=== PATIENT | female | born 1950 | race African-American/Black ===

== ENCOUNTER 2024-07-26 22:40 | Emergency (ER) | payer OTHER, MEDICAID ==
[~2024-07-26] VITALS: Ht 162.6 cm; Wt 81.1 kg
[2024-07-26] MEDS: SODIUM CHLORIDE 0.9% 500 ML IV ONE (23:30)
[2024-07-26 23:50] VITALS: PULSE 62; RESP 18; TEMP 97.9; O2SAT 95
[2024-07-26 23:51] LABS: Basophils # (auto) 0 10 ^3/uL (0-0.2); Basophils % (auto) 0.6 % (0.0-2.0); Eosinophils # (auto) 0.2 10 ^3/uL (0-0.8); Eosinophils % (auto) 2.7 % (0.0-7.0); Hematocrit 38.9 % (36.0-46.0); Hemoglobin 12.8 g/dL (12.2-16.2); Lymphocytes % (auto) 47.5 % (10.0-50.0); Mean Corpuscular Hemoglobin 27.5 pg (28.0-32.0); Mean Corpuscular Hgb Conc. 32.9 g/dL (32.0-36.0); Mean Corpuscular Volume 83.6 fL (80.0-100.0); Monocytes # (auto) 0.3 10 ^3/uL (0-1.3); Monocytes % (auto) 5.5 % (0.0-12.0); Neutrophils # (auto) 2.8 10 ^3/uL (1.6-8.6); Neutrophils % (auto) 43.7 % (37.0-80.0); Nucleated Red Blood Cells % 0.1 %; Platelet Count (auto) 341 10^3/uL (140-450); Red Blood Cells 4.65 10^6/uL (4.0-5.20); Red Cell Distribution Width 15.6 % (11.8-14.3); White Blood Cell 6.3 10^3/uL (4.4-10.8)
--- NOTE | 2024-07-26 23:52 | DVH ---
CT HEAD WITHOUT CONTRAST INDICATION: gen weak COMPARISON: None TECHNIQUE: CT of the head without intravenous contrast. RADIATION DOSE: CTDIvol: mGy, DLP: mGy*cm FINDINGS: There is no evidence of intracranial hemorrhage, acute infarct, extra-axial collection, mass effect, midline shift, herniation or hydrocephalus. There are small old infarcts in the left posterior tempo ral lobe and left basal ganglia/morales radiata, an old lacunar infarct in the right thalamus, and a v adriano small old infract in right cerebellum. Bcqr-cr-ieyjhnja ventricular enlargement related to cereb ral volume loss. Visualized paranasal sinuses and mastoid air cells are clear. Soft tissues and osseo us structures are unremarkable. IMPRESSION: No acute intracranial abnormality identified.
--- NOTE | 2024-07-26 23:58 | DVH ---
CHEST RADIOGRAPH Indication: gen weak Technique: Single frontal view of the chest was obtained Comparison: None Findings/ IMPRESSION: Limited evaluation due to overlying left upper extremity. 2 radiopaque opacities most likely artifact . No active cardiopulmonary disease.
[2024-07-27 00:09] LABS: Alanine Aminotransferase 11 U/L (7-40); Albumin 4.2 g/dL (3.2-4.8); Alkaline Phosphatase 68 U/L (46-116); Anion Gap 9 (5-15); Bilirubin, Total 0.3 mg/dL (0.2-1.0); Blood Urea Nitrogen 19 mg/dL (9-23); Calcium 10.1 mg/dL (8.7-10.4); Carbon Dioxide 23 mmol/L (20-31); Chloride 104 mmol/L (98-107); Creatine Kinase IFCC 161 U/L (34-145); Potassium 3.8 mmol/L (3.5-5.1); Sodium 136 mmol/L (136-145); Total Protein 6.9 g/dL (5.7-8.2)
[2024-07-27 00:17] LABS: Aspartate Aminotransferase 12 U/L (13-40); Glucose 190 mg/dL (74-106)
--- NOTE | 2024-07-27 00:21 | ED.PDOC ---
History of Present Illness HPI Comments 74-year-old female with a history of hypertension, diabetes and CVA brought in by EMS from home for evaluation of transient altered mental status. Patient's daughter states that she had just left the patient alone for a few minutes while getting ready for bed when she noticed a smell of feces. She assumed the patient had had a bowel movement and needed to be changed, so went to assist her. Daughter states she found the patient leaning against the bed with her eyes rolling back and some foam around her mouth. Pt subsequently vomited. Pt's daughter states she quickly gave the patient her evening dose of Lantus, assuming that her blood glucose might have been too high. She subsequently c hecked the patient's glucose, which was on 190. Patient states after she vomited she felt better. She denies losing consciousness, and states she recalls the entire incident. She states did not fall or sustain any injury. She denies any preceding pain, shortness a breath, vision changes or focal weakness. Daughter states the patient has been in her usual state of health up until this episode. Currently the patient denies any symptoms. Daughter states the patient appears to be at her normal baseline. 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 Moist mucous membranes.) Neck: Full Range of Motion, Normal Inspection Respiratory: Lungs Clear, No Accessory Muscle Use, No Respiratory Distress, Normal Breath Sounds Cardiovascular: No Edema, No JVD, Regular Rate/Rhythm Breast Exam: Deferred Gastrointestinal: Non Tender, Soft Genitalia: Deferred Pelvic: Deferred Rectal: Deferred Extremities: Normal inspection, Normal range of motion, Non-tender, No pedal edema Neurologic: Alert (Oriented x4), Normal Affect, Normal Mood, Other (Moves all extremities. No gross focal deficit.) Cerebellar Function: NOT DONE Reflexes: NOT DONE Skin: Dry, Pallor, Warm Lymphatic: NOT DONE Was a procedure done? Was a procedure done?: No Differential Dx Considerations may include: Vasovagal episode, TIA, CVA, other encephalopathy, enteritis, gastritis, UTI, sepsis, arrhythmia, MD, among others X-Ray, Labs, Meds, VS Vital Signs Date Time Temp Pulse Resp B/P (MAP) Pulse Ox O2 Delivery O2 Flow Rate FiO2 07/26/24 22:53 98.7 59 16 172/87 (115) 98 98.7 07/26/24 22:48 62 Lab Test 07/27/24 00:30 07/27/24 00:20 07/26/24 23:32 07/26/24 22:50 Range/Units Urine Color Light-yellow Yellow Urine Clarity Clear Clear Urine pH 5.0 5.0-9.0 Urine Specific [place] 1.017 1.001-1.035 Urine Protein Negative Negative Urine Ketones Negative Negative Urine Blood Negative Negative /uL Urine Nitrite Negative Negative Urine Bilirubin Negative Negative Urine Urobilinogen Normal Negative mg/dL Urine Leukocyte Esterase Negative Negative /uL Urine RBC 1 0 - 4 /hpf Urine Microscopic WBC 3 0-5 /HPF Urine Squamous Epithelial Cells Few <5 /hpf Urine Bacteria None seen None Seen /hpf Urine Mucus Few None Seen Urine Glucose Trace Normal mg/dL Troponin I High Sensitivity 3 L 3 L </=34 ng/L White Blood Count 6.3 4.4-10.8 10^3/uL Red Blood Count 4.65 4.0-5.20 10^6/uL Hemoglobin 12.8 12.2-16.2 g/dL Hematocrit 38.9 36.0-46.0 % Mean Corpuscular Volume 83.6 80.0-100.0 fL Mean Corpuscular Hemoglobin 27.5 L 28.0-32.0 pg Mean Corpuscular Hemoglobin Concent 32.9 32.0-36.0 g/dL Red Cell Distribution Width 15.6 H 11.8-14.3 % Platelet Count 341 140-450 10^3/uL Mean Platelet Volume 8.1 6.9-10.8 fL Neutrophils (%) (Auto) 43.7 37.0-80.0 % Lymphocytes (%) (Auto) 47.5 10.0-50.0 % Monocytes (%) (Auto) 5.5 0.0-12.0 % Eosinophils (%) (Auto) 2.7 0.0-7.0 % Basophils (%) (Auto) 0.6 0.0-2.0 % Neutrophils # (Auto) 2.8 1.6-8.6 10 ^3/uL Lymphocytes # (Auto) 3.0 0.4-5.4 10 ^3/uL Monocytes # (Auto) 0.3 0-1.3 10 ^3/uL Eosinophils # (Auto) 0.2 0-0.8 10 ^3/uL Basophils # (Auto) 0 0-0.2 10 ^3/uL Nucleated Red Blood Cells 0.1 % Sodium Level 136 136-145 mmol/L Potassium Level 3.8 3.5-5.1 mmol/L Chloride Level 104 98-107 mmol/L Carbon Dioxide Level 23 20-31 mmol/L Anion Gap 9 5-15 Blood Urea Nitrogen 19 9-23 mg/dL Creatinine 0.73 0.550-1.02 mg/dL Glomerular Filtration Rate Calc 87 >90 mL/min BUN/Creatinine Ratio 26.0 H 10.0-20.0 Serum Glucose 190 H 74-106 mg/dL Lactic Acid Level 1.6 0.4-2.0 mmol/L Calcium Level 10.1 8.7-10.4 mg/dL Total Bilirubin 0.3 0.2-1.0 mg/dL Aspartate Amino Transferase (AST) 12 L 13-40 U/L Alanine Aminotransferase (ALT) 11 7-40 U/L Alkaline Phosphatase 68 46-116 U/L Creatine Kinase 161 H 34-145 U/L B-Type Natriuretic Peptide 16.06 0-100 pg/mL Total Protein 6.9 5.7-8.2 g/dL Albumin 4.2 3.2-4.8 g/dL POC Glucose 190 H 70-106 mg/dl Current Medications Medications (Trade) Dose Ordered Sig/Wilfredo Route Start Time Stop Time Status Last Admin Sodium Chloride 500 ml @ 500 mls/hr Q1H ONCE IV 07/26/24 23:30 07/27/24 00:29 DC 07/26/24 23:30 PROCEDURE(s): HWOCT - HEAD WITHOUT CONTRAST REASON: gen dunn ORDER NUMBER(s): [id number], ACCESSION NUMBER(s): [id number] CT HEAD WITHOUT CONTRAST INDICATION: gen dunn COMPARISON: None TECHNIQUE: CT of the head without intravenous contrast. RADIATION DOSE: CTDIvol: mGy, DLP: mGy*cm FINDINGS: There is no evidence of intracranial hemorrhage, acute infarct, extra-axial collection, mass effect, midline shift, herniation or hydrocephalus. There are small old infarcts in the left posterior temporal lobe and left basal ganglia/morales radiata, an old lacunar infarct in the right thalamus, and a very small old infract in right cerebellum. Jbeu-lx-zrhlgkyf ventricular enlargement related to cerebral volume loss. Visualized paranasal sinuses and mastoid air cells are clear. Soft tissues and osseous structures are unremarkable. IMPRESSION: No acute intracranial abnormality identified. EDURE(s): CXRP - CHEST PORTABLE REASON: [email or web address] ORDER NUMBER(s): [id number], ACCESSION NUMBER(s): [id number] CHEST RADIOGRAPH Indication: shaun Technique: Single frontal view of the chest was obtained Comparison: None Findings/ IMPRESSION: Limited evaluation due to overlying left upper extremity. 2 radiopaque opacities most likely artifact. No active cardiopulmonary disease. X-Ray, Labs, Meds, VS Comment 74-year-old female with a history of hypertension, diabetes and CVA brought in by EMS after a transient episode of altered mental status, followed by vomiting. Patient now back to baseline according to daughter. Vitals remarkable for heart rate 59, BP 172/87 Exam unremarkable Rhythm strip independently interpreted by me: Sinus rhythm, rate 58, no ectopy. CT head unremarkable Chest x-ray unremarkable CBC unremarkable, CMP, BNP and troponin normal, total CK 161, lactic normal, UA remarkable Patient treated with the following in the ED: 500 cc 0.9 normal saline IV bolus On re-evaluation, patient was sleeping comfortably, easily arousable, and at normal neurologic baseline per daughter. Patient appears stable for discharge with close outpatient follow-up with her primary physician. Rx Zofran ODT. Time of 1ST Reevaluation: :34 Reevaluation 1ST: Improved Patient Education/Counseling: Diagnosis, Treatment, Need For Follow Up Family Education/Counseling: Diagnosis, Treatment, Need For Follow Up Departure 1 Departure Time of Disposition: : Impression: Primary Impression: Vasovagal episode Disposition: HOME / SELF CARE / HOMELESS Condition: Stable Additional Instructions: Your blood tests were unremarkable. Your urine test did not show an infection. Your head CT was unremarkable. Your chest x-ray was unremarkable. I have prescribed medication for nausea and vomiting. Follow-up with your primary doctor in 1-2 days. Return to ER for persistent or worsening symptoms. e-Prescriptions Ondansetron Odt 4MG Tab (ZOFRAN PO) 4 Mg Tb 4 MG PO TID PRN, #30 TAB prn n/v ODT TAB-DISSOLVE IN MOUTH, THEN SWALLOW Prov: DELONTE HART MD 07/27/24 Discharged With: Relative Critical Care Note Critical Care Time?: No Stability Stability form required: No Heart Score Heart Score: Heart Score Response (Comments) Value History N/A 0 EKG N/A 0 Age N/A 0 Risk Factors N/A 0 Troponin N/A 0 Total 0 DELONTE HART MD Jul 27, 2024 00:21
[2024-07-27 00:54] LABS: Urine Bacteria None Seen /hpf (None Seen)
[2024-07-27 01:15] LABS: Urine Blood Negative /uL (Negative); Urine Clarity Clear (Clear); Urine Color Light-Yellow (Yellow); Urine Mucus FEW (None Seen); Urine Protein, UAD Negative (Negative); Urine Specific Gravity 1.017 (1.001-1.035); Urine Squamous Epithelial Cell FEW /hpf (<5); Urine Urobilinogen Normal (Negative); Urine WBC 3 /HPF (0-5)
[2024-07-27] MEDS ORDERED: ZOFR4T PO (01:36)
[2024-07-27] MEDS: ONDANSETRON HCL 4 MG/2 ML VIAL ONE (02:24)
[2024-07-27 07:30] VITALS: PULSE 57; RESP 14; O2SAT 95
[2024-07-27 08:00] VITALS: BP 144/77; PULSE 57; RESP 14; O2SAT 95
--- NOTE | 2024-07-27 09:02 | ECG ---
[facility] Test Date: 2024-07-26 Test Time: 22:48:29 Pat Name: SLOANE ESPINAL Department: ED Room: Gender: F Product Technician: ER : [id number] Requested By: DELONTE GREER Order Number: [id number] Reading MD: Marcos Morris Measurements Intervals [place] Rate: 62 P: 85 [place]: 169 QRS: 55 QRSD: 87 T: 115 QT: 594 QTc: 604 Interpretive Statements Sinus rhythm Low voltage, precordial leads Nonspecific T abnrm, anterolateral leads Prolonged QT interval Electronically Signed On 07-29-2024 20:26:22 PDT by Marcos Morris Please click the below link to view image of tracing.
== END 2024-07-27 11:28 | disposition home or self-care (01) ==
LOC: EDBD 22:40 → ER 22:45
DX: R55 Syncope and collapse (principal); R19.4 Change in bowel habit; R11.10 Vomiting, unspecified; I10 Essential (primary) hypertension; E11.9 Type 2 diabetes mellitus without complications; R06.02 Shortness of breath; Z86.73 Personal history of transient ischemic attack (TIA), and cerebral infarction without residual deficits; Z98.890 Other specified postprocedural states
CPT/HCPCS: 36415; 70450; 71045; 80053; 81001; 82550; 82947; 83605; 83880; 84484; 85025; 87040; 93005; 99285; J7040; 82962; J2405

== ENCOUNTER 2025-02-07 19:33 | Inpatient (IN) | payer MEDICARE, MEDICAID ==
[~2025-02-07] VITALS: Ht 172.7 cm; Wt 73.4 kg
[~2025-02-07 19:33] MED LIST: ZOFR4T PO
[2025-02-07] MEDS: SODIUM CHLORIDE 0.9% 1,000 ML IV ONE (21:00)
--- NOTE | 2025-02-07 21:15 | DVH ---
EXAM: XY CHEST XRAY 1 VIEW HISTORY: AMS, eval for PNA TECHNIQUE: 1 view of the chest COMPARISON: XY CHEST PORTABLE on DOS: 07/26/24 FINDINGS/IMPRESSION: LUNGS: No pleural effusion, consolidation, or pneumothorax. MEDIASTINUM: Unremarkable. BONES: No acute osseous abnormality. OTHER: None.
[2025-02-07 21:17] VITALS: PULSE 76; RESP 14; O2SAT 95
[2025-02-07 21:17] LABS: Hematocrit 42.0 % (36.0-46.0); Hemoglobin 13.9 g/dL (12.2-16.2); Mean Corpuscular Hemoglobin 27.8 pg (28.0-32.0); Mean Corpuscular Volume 84.2 fL (80.0-100.0); Nucleated Red Blood Cells % 0.1 %
--- NOTE | 2025-02-07 21:21 | DVH ---
EXAM: CT HEAD WITHOUT CONTRAST INDICATION: AMS, h/o prior CVA TECHNIQUE: CT of the head without intravenous contrast. Radiation Dose Information: CT Dose: CTDI volume is 53.64 mGy. Dose-length product is 1076.15 mGy*cm The dose indicators for CT are the volume Computed Tomography (CT) Dose Index (CTDIvol) and the Dose Length Product (DLP), and are measured in units of mGy and mGy-cm, respectively. These indicators are not patient dose, but values generated from the CT scanner acquisition factors. The report includes radiation exposure data for exposures received during this examination. COMPARISON: CT HEAD WITHOUT CONTRAST on DOS: 07/26/24 FINDINGS: There is no evidence of acute intracranial hemorrhage, extra-axial collection, mass effect, midline shift, herniation or hydrocephalus. The ventricles, sulci and cisterns are age appropriate. Remote infarct near the junction of the left posterior temporal, parietal, and occipital lobes. Patchy periventricular and subcortical white matter hypoattenuation is nonspecific but may be related to small vessel ischemic disease. The visualized paranasal sinuses and mastoid air cells are clear. The surrounding soft tissues and osseous structures are unremarkable. IMPRESSION: No acute intracranial abnormality.
[2025-02-07 21:22] LABS: Chloride 103 mmol/L (98-107); Potassium 3.6 mmol/L (3.5-5.1); Sodium 139 mmol/L (136-145)
[2025-02-07 21:23] LABS: Anion Gap 13 (5-15); Calcium 10.4 mg/dL (8.7-10.4); Carbon Dioxide 23 mmol/L (20-31)
[2025-02-07 21:28] LABS: BUN/Creatinine Ratio 17.8 (10.0-20.0); Blood Urea Nitrogen 16 mg/dL (9-23)
[2025-02-07 21:37] LABS: Glucose 257 mg/dL (74-106)
--- NOTE | 2025-02-07 22:12 | ED.PDOC ---
History of Present Illness HPI Comments 74-year-old female with past medical history of prior CVA (residual right sided deficit, bed-bound at baseline), diabetes, dementia sent in from home for worsening confusion over the past couple of hours. History is taken from the medics who got the history from family members on scene. Patient is typically bed-bound and is demented, however, is usually more alert than she has been over the past couple hours. No recent trauma, injury. No reported fevers at home. Additional history taken after the daughter arrived. Daughter states that they were visiting nursing services evaluating the patient today. The patient had not been wanting to take her blood pressure medications over the past few days. However, the nurse made her take all of them. Daughter states that she takes about 4 or 5 different medications for blood pressure. She also took her Seroquel, however, usual dose. Daughter states that she thinks that all the medications given at once may have been too much for me have dropped her blood pressure. The patient started looking more altered, became diaphoretic, pale, when they checked the blood pressure at home she had systolic blood pressure in the 70s. When the medics arrived they did notice that her blood pressure was low, they started IV fluid. 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 DISPLAY FABRICATION SUPERVISOR History Family History Family History: Reviewed,noncontributory to illness Social History Smoker: Non-Smoker Alcohol: Denies ETOH Use Drugs: Denies Drug Use Lives In: Home Constitutional: denies: chills, diaphoresis, fatigue, fever, malaise, sweats, weakness, others EENTM: denies: blurred vision, double vision, ear bleeding, ear discharge, ear drainage, ear pain, ear ringing, eye pain, eye redness, hearing loss, mouth pain, mouth swelling, nasal discharge, nose bleeding, nose congestion, nose pain, photophobia, tearing, throat pain, throat swelling, voice changes, others Respiratory: denies: cough, hemoptysis, orthopnea, SOB at rest, shortness of breath, SOB with excertion, stridor, wheezing, others Cardiovascular: denies: chest pain, dizzy spells, diaphoresis, Dyspnea on exertion, edema, irregular heart beat, left arm pain, lightheadedness, palpitations, PND, syncope, others Gastrointestinal: denies: abdomen distended, abdominal pain, blood streaked bowels, constipated, diarrhea, dysphagia, difficulty swallowing, hematemesis, melena, nausea, poor appetite, poor fluid intake, rectal bleeding, rectal pain, vomiting, others Genitourinary: denies: abnormal vagina bleeding, burning, dyspareunia, dysuria, flank pain, frequency, hematuria, incontinence, pain, , vagina discharge, urgency, others Neurological: reports: others (confusion) Musculoskeletal: denies: back pain, gout, joint pain, joint swelling, muscle pain, muscle stiffness, neck pain, others Integumetry: denies: bruises, change in color, change in hair/nails, dryness, laceration, lesions, lumps, rash, wounds, others Allergic/Immunocompromised: denies: Difficulty Healing, Frequent Infections, Hives, Itching, others Hematologic/Lymphatic: denies: anemia, blood clots, easy bleeding, easy bruising, swollen glands, others Endocrine: denies: excessive hunger, excessive sweating, excessive thirst, excessive urination, flushing, intolerance to cold, intolerance to heat, unexplained weight gain, unexplained weight loss, others Psychiatric: denies: anxiety, bipolar disorder, depression, hopeless, panic disorder, schizophrenia, sleepless, suicidal, others Unable to Obtain due to: Altered Mental Status, Dementia Physical Exam General Appearance: None HEENT: Normal ENT Inspection, Other (Dry mucous membranes) Neck: None Respiratory: No Accessory Muscle Use, No Respiratory Distress Cardiovascular: Other (trace lower extremity edema) Breast Exam: Deferred Gastrointestinal: Normal Bowel Sounds, Soft Genitalia: Deferred Pelvic: Deferred Rectal: Deferred Extremities: Decreased range of motion Neurologic: Alert, Other (Patient is slightly verbal, however, confused, following simple commands, left-sided hemiplegia at baseline) Cerebellar Function: Unable to Test Reflexes: NOT DONE Skin: Normal Color Lymphatic: No Adenopathy Was a procedure done? Was a procedure done?: No Differential Dx Considerations may include: UTI versus pneumonia versus CVA versus sundowning versus dementia X-Ray, Labs, Meds, VS Vital Signs Date Time Temp Pulse Resp B/P (MAP) Pulse Ox O2 Delivery O2 Flow Rate FiO2 02/07/25 21:17 97.5 76 14 146/72 (96) 95 97.5 02/07/25 19:46 67 02/07/25 19:33 97.5 63 12 125/63 95 97.5 Lab Test 02/07/25 21:07 02/07/25 21:00 Range/Units POC Glucose 242 H 70-106 mg/dl White Blood Count 7.5 4.4-10.8 10^3/uL Red Blood Count 5.00 4.0-5.20 10^6/uL Hemoglobin 13.9 12.2-16.2 g/dL Hematocrit 42.0 36.0-46.0 % Mean Corpuscular Volume 84.2 80.0-100.0 fL Mean Corpuscular Hemoglobin 27.8 L 28.0-32.0 pg Mean Corpuscular Hemoglobin Concent 33.0 32.0-36.0 g/dL Red Cell Distribution Width 15.4 H 11.8-14.3 % Platelet Count 346 140-450 10^3/uL Mean Platelet Volume 8.1 6.9-10.8 fL Neutrophils (%) (Auto) 62.2 37.0-80.0 % Lymphocytes (%) (Auto) 29.1 10.0-50.0 % Monocytes (%) (Auto) 7.3 0.0-12.0 % Eosinophils (%) (Auto) 0.7 0.0-7.0 % Basophils (%) (Auto) 0.7 0.0-2.0 % Neutrophils # (Auto) 4.7 1.6-8.6 10 ^3/uL Lymphocytes # (Auto) 2.2 0.4-5.4 10 ^3/uL Monocytes # (Auto) 0.5 0-1.3 10 ^3/uL Eosinophils # (Auto) 0.1 0-0.8 10 ^3/uL Basophils # (Auto) 0.1 0-0.2 10 ^3/uL Nucleated Red Blood Cells 0.1 % Sodium Level 139 136-145 mmol/L Potassium Level 3.6 3.5-5.1 mmol/L Chloride Level 103 98-107 mmol/L Carbon Dioxide Level 23 20-31 mmol/L Anion Gap 13 5-15 Blood Urea Nitrogen 16 9-23 mg/dL Creatinine 0.90 0.550-1.02 mg/dL Glomerular Filtration Rate Calc 68 >90 mL/min BUN/Creatinine Ratio 17.8 10.0-20.0 Serum Glucose 257 H 74-106 mg/dL Calcium Level 10.4 8.7-10.4 mg/dL Troponin I High Sensitivity 4 </=34 ng/L Plasma/Serum Blood Alcohol < 3.0 <10 mg/dL Current Medications Medications (Trade) Dose Ordered Sig/Wilfredo Route Start Time Stop Time Status Last Admin Sodium Chloride 1,000 ml @ 1,000 mls/hr Q1H ONCE IV 02/07/25 20:45 02/07/25 21:44 DC 02/07/25 21:00 Time of 1ST Reevaluation: 22:08 Reevaluation 1ST: Unchanged Patient Education/Counseling: Diagnosis, Treatment Family Education/Counseling: No Family Present SEPSIS Sepsis Screen Date sepsis recognized/suspect: Feb 07, 2025 Time Sepsis recognized/suspect: 1932 Recent Procedure: No On Antibiotic Therapy: No Respiratory Rate >20: No Heart Rate >90: No Temp<36 C (96.8 F) or >38.3 C: No SBP <90 or MAP <65 mmHG: No New Acute Mental Status Change: No Is the patient on CPAP, BIPAP,: No Physician Orders Electrocardigram (02/07/25 20:06) Head Without Contrast (02/07/25 20:26) Chest Xray 1 View (02/07/25 20:26) Urinalysis (02/07/25 20:34) Drug Screen (02/07/25 20:34) Straight Cath Patient (02/07/25 20:38) Vital Signs Date Time Temp Pulse Resp B/P (MAP) Pulse Ox O2 Delivery O2 Flow Rate FiO2 02/07/25 21:17 97.5 76 14 146/72 (96) 95 97.5 02/07/25 19:46 67 02/07/25 19:33 97.5 63 12 125/63 95 97.5 Laboratory Tests Test 02/07/25 21:00 White Blood Count 7.5 10^3/uL (4.4-10.8) Medications Medications Dose Ordered Sig/Wilfredo Route Start Time Stop Time Status Last Admin Dose Admin Sodium Chloride 1,000 ml @ 1,000 mls/hr Q1H ONCE IV 02/07/25 20:45 02/07/25 21:44 DC 02/07/25 21:00 Departure 1 Departure Time of Disposition: 22:09 (74-year-old female with past medical history of prior CVA with residual right-sided deficit, bed-bound at baseline, history of dementia, diabetes brought in from home for worsening confusion over the past couple of hours. Daughter then specifying that she became diaphoretic, hypotensive. Given these symptoms a broad workup was obtained. Given prior history of CVA a CT of the head was performed that shows no evidence of any acute intracranial pathology. Patient's glucose is within normal limits upon arrival. Given that patient is demented could be high risk for infections. est x-ray was performed which upon my review shows no evidence of focal consolidation to suggest a pneumonia. Patient is bed-bound, was a diaper at baseline, could have a UTI. Will obtain urinalysis to evaluate for UTI. Does have some dry mucous membranes. Consider possible dehydration. Perhaps all of her blood pressure medications at once popped her blood pressure transiently. Here her blood pressure is within normal limits. Given 1 L normal saline IV fluid bolus. As afebrile, does not appear septic. CBC with no evidence of critical leukocytosis or significant anemia. Metabolic panel with no evidence of acute electrolyte abnormalities or acute kidney insufficiency. Alcohol level is negative. Consider possible sundowning related to dementia causing worsening altered mental status. Patient will be admitted for further workup and management.) Impression: Primary Impression: Altered mental status Additional Impressions: Dementia Transient hypotension Disposition: 09 ADMITTED INPATIENT Admit to: Med Surg Condition: Stable Critical Care Note Critical Care Time?: No Stability Stability form required: No Heart Score Heart Score: Heart Score Response (Comments) Value History N/A 0 EKG N/A 0 Age N/A 0 Risk Factors N/A 0 Troponin N/A 0 Total 0 CLARISSA PEREZ MD Feb 07, 2025 22:12
[2025-02-08] VITALS (9 sets, daily range): BP systolic 126–177; BP diastolic 71–80; PULSE 68–91; RESP 12–20; TEMP 98–98.2; O2SAT 95–98
[2025-02-08] MEDS ORDERED: DEXTROSE (50%) 50ML SYRG IV PRN (00:15)
[2025-02-08] MEDS: ATORVASTATIN 20 MG TAB PO ONE (00:38)
--- NOTE | 2025-02-08 00:46 | DVHHPRES ---
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 Patient's daughter reports that patient got home health today and the nurse informed that the patient's blood pressure was over 180/90 mmHg for which all hypertensive medications- hydralazine 25, losartan 100 mg, amlodipine 10 mg and clonidine were administered. After a while patient started to look sal garay, became pale, was clammy and diaphoretic as well as hyper somnolent and more confused than her baseline, which prompted her daughter to bring her to the ER. Patient's daughter denies any other complaints such as chest pain, abdominal pain, urinary symptoms, change in bowel habits, shortness of breath in the recent past. Vitals on admission BP 117/56 mmHg, HR 71, RR 14, pulse oximetry 95% in room air. CBC and BMP are normal, tropes are negative, chest x-ray and head CT are negative. We are admitting the patient for further workup and management. PMH: As above PSH: None Family history: Reviewed, noncontributory the management of this case Social history: Does not drink alcohol, smoke or take any illicit drugs Allergies: None Code status: Full code Review of Systems Constitutional: Yes: Other (Diaphoretic); No: Fever, Chills, Sweats, Weakness, Malaise Eyes: No: Pain, Vision change, Conjunctivae inflammation, Eyelid inflammation, Other, Redness ENT: No: Ear pain, Ear discharge, Nose pain, Nose discharge, Nose congestion, Mouth pain, Mouth swelling, Throat pain, Throat swelling, Other Respiratory: No: Cough, Dry, Shortness of breath, SOB with excertion, Wheezing, Hemoptysis, Pleuritic Pain, Sputum, Wheezing, Other Cardiovascular: No: Chest Pain, Palpitations, Orthopnea, Paroxysmal Noc. Dyspnea, Edema, Lt Headedness, Other Genitourinary: No Dysuria, No Frequency, No Incontinence, No Hematuria, No Retention, No Other Musculoskeletal: No: other, neck pain, shoulder pain, arm pain, back pain, hand pain, leg pain, foot pain Skin: No: Rash, Lesions, Jaundice, Bruising, Other Neurological: Confusion, Other (Hypersomnolent); No: Weakness, Numbness, Incoordination, Change in speech, Seizures Allergies: Coded Allergies: No Known Drug Allergy (Verified Allergy, Unknown, 07/26/24) Medications Current Medications Medications Dose Ordered Sig/Wilfredo Route Start Time Stop Time Status Last Admin Dose Admin Acetaminophen 650 mg Q6HP PRN PO 02/08/25 00:15 Enoxaparin Sodium 40 mg DAILY SC 02/08/25 00:15 Insulin Glargine 30 units DAILY@1000 SC 02/08/25 10:00 Diagnostic Test (Pha) 1 strip ACHS 02/08/25 07:00 Insulin Human Regular ACHS SC 02/08/25 07:00 Dextrose 50 ml UD PRN IV 02/08/25 00:15 Losartan Potassium 100 mg DAILY PO 02/08/25 10:00 Amlodipine Besylate 10 mg DAILY PO 02/08/25 10:00 Atorvastatin Calcium 40 mg HS PO 02/08/25 22:00 Aspirin 81 mg DAILY PO 02/08/25 10:00 Clopidogrel Bisulfate 75 mg DAILY PO 02/08/25 10:00 Ceftriaxone Sodium 50 ml @ 100 mls/hr DAILY@09 IV 02/09/25 09:00 Exam Vital Signs Vital Signs Date Time Temp Pulse Resp B/P (MAP) Pulse Ox O2 Delivery O2 Flow Rate FiO2 02/07/25 21:17 97.5 76 14 146/72 (96) 95 97.5 Exam Pt is lying on bed General Appearance: Confused, hypersomnolent HEENT: Atraumatic, Mucous membranes moist/pink Respiratory: Clear to auscultation, Normal air movement, No added sounds Cardiovascular: Regular rate, Normal S1, Normal S2, No murmurs Abdominal: Active bowel sounds, Soft, no distention, no tenderness Extremities: No edema, Normal pulses, No tenderness/swelling, right-sided upper and lower extremity decreased strength Skin: No Significant rash, except past surgical scars Neuro: Normal speech, sensorimotor deficits none Psych/Mental Status: Mental status NL, Mood NL Nurse was there as hasher operator during examination Labs/Xrays Labs Test 02/07/25 21:07 02/07/25 21:00 Range/Units POC Glucose 242 H 70-106 mg/dl White Blood Count 7.5 4.4-10.8 10^3/uL Red Blood Count 5.00 4.0-5.20 10^6/uL Hemoglobin 13.9 12.2-16.2 g/dL Hematocrit 42.0 36.0-46.0 % Mean Corpuscular Volume 84.2 80.0-100.0 fL Mean Corpuscular Hemoglobin 27.8 L 28.0-32.0 pg Mean Corpuscular Hemoglobin Concent 33.0 32.0-36.0 g/dL Red Cell Distribution Width 15.4 H 11.8-14.3 % Platelet Count 346 140-450 10^3/uL Mean Platelet Volume 8.1 6.9-10.8 fL Neutrophils (%) (Auto) 62.2 37.0-80.0 % Lymphocytes (%) (Auto) 29.1 10.0-50.0 % Monocytes (%) (Auto) 7.3 0.0-12.0 % Eosinophils (%) (Auto) 0.7 0.0-7.0 % Basophils (%) (Auto) 0.7 0.0-2.0 % Neutrophils # (Auto) 4.7 1.6-8.6 10 ^3/uL Lymphocytes # (Auto) 2.2 0.4-5.4 10 ^3/uL Monocytes # (Auto) 0.5 0-1.3 10 ^3/uL Eosinophils # (Auto) 0.1 0-0.8 10 ^3/uL Basophils # (Auto) 0.1 0-0.2 10 ^3/uL Nucleated Red Blood Cells 0.1 % Sodium Level 139 136-145 mmol/L Potassium Level 3.6 3.5-5.1 mmol/L Chloride Level 103 98-107 mmol/L Carbon Dioxide Level 23 20-31 mmol/L Anion Gap 13 5-15 Blood Urea Nitrogen 16 9-23 mg/dL Creatinine 0.90 0.550-1.02 mg/dL Glomerular Filtration Rate Calc 68 >90 mL/min BUN/Creatinine Ratio 17.8 10.0-20.0 Serum Glucose 257 H 74-106 mg/dL Calcium Level 10.4 8.7-10.4 mg/dL Troponin I High Sensitivity 4 </=34 ng/L Plasma/Serum Blood Alcohol < 3.0 <10 mg/dL SEPSIS Sepsis Screen Date sepsis recognized/suspect: Feb 07, 2025 Time Sepsis recognized/suspect: 1932 Recent Procedure: No On Antibiotic Therapy: No Respiratory Rate >20: No Heart Rate >90: No Temp<36 C (96.8 F) or >38.3 C: No SBP <90 or MAP <65 mmHG: No New Acute Mental Status Change: No Is the patient on CPAP, BIPAP,: No Physician Orders Electrocardigram (02/07/25 20:06) Head Without Contrast (02/07/25 20:26) Chest Xray 1 View (02/07/25 20:26) Urinalysis (02/07/25 20:34) Drug Screen (02/07/25 20:34) Straight Cath Patient (02/07/25 20:38) Admit (02/08/25 00:09) Code Status (02/08/25 00:09) Complete Blood Count (02/08/25 04:00) Comprehensive Metabolic Panel (02/08/25 04:00) Condition: Unstable (02/08/25 00:09) Acetaminophen Tablet (Tylenol Tablet) (02/08/25 00:15) Enoxaparin Sodium (Lovenox) (02/08/25 00:15) Insulin Lantus (Glargine) (Lantus) (02/08/25 10:00) Glucose Blood (Accu-Chek Comfort Curve T (02/08/25 07:00) Insulin R (Human) (Insulin R) (02/08/25 07:00) Dextrose 50% Syringe (02/08/25 00:15) Losartan Tablet (Cozaar Tablet) (02/08/25 10:00) Amlodipine Tablet (Norvasc Tablet) (02/08/25 10:00) Atorvastatin (Lipitor) (02/08/25 22:00) Aspirin Tablet (02/08/25 10:00) Clopidogrel Bisulfate (Plavix) (02/08/25 10:00) Cardiac Diet-2gna,Lofat,Lochol (02/08/25 Breakfast) Magnesium (02/08/25 00:09) Hepatic Panel (02/08/25 00:09) Thyroid Stimulating Hormone (02/08/25 00:09) Ammonia (02/08/25 00:09) Lactic Acid W/ Reflex Order (02/08/25 00:09) Blood Culture (02/08/25 00:09) Rapid Influenza A&B (02/08/25 00:09) Covid19 Antigen Angie (02/08/25 ) Ceftriaxone 1gm/50ml (Rocephin) (02/08/25 00:15) Urine Bacterial Culture (02/08/25 00:09) Sodium Chloride 0.9% (02/08/25 00:15) Ceftriaxone 1gm/50ml (Rocephin) (02/09/25 09:00) Vital Signs Date Time Temp Pulse Resp B/P (MAP) Pulse Ox O2 Delivery O2 Flow Rate FiO2 02/07/25 21:17 97.5 76 14 146/72 (96) 95 97.5 02/07/25 19:46 67 02/07/25 19:33 97.5 63 12 125/63 95 97.5 Laboratory Tests Test 02/07/25 21:00 White Blood Count 7.5 10^3/uL (4.4-10.8) Medications Medications Dose Ordered Sig/Wilfredo Route Start Time Stop Time Status Last Admin Dose Admin Sodium Chloride 1,000 ml @ 1,000 mls/hr Q1H ONCE IV 02/07/25 20:45 02/07/25 21:44 DC 02/07/25 21:00 1,000 MLS/HR Assessment/Plan Assessment/Plan #Metabolic encephalopathy, rule out UTI, bacteremia - CT head shows: No acute intracranial abnormality. - chest x-ray: normal - TSH 1.43 - serum alcohol < 3 - lactic acid 1.4 - magnesium 1.8 - ammonia <10 - UDS - COVID, influenza neg - UA - IV NS 0.9% 1 L bolus once and 100 cc/ hour once - blood culture - urine culture #Uncontrolled Type 2 diabetes mellitus - A1c 8.4 - Lantus 30 units - sliding scale insulin - Accu-Cheks #Hyperlipidemia - atorvastatin 40 mg p.o. daily #History of stroke - continue aspirin 81 mg daily - continue Plavix 75 mg daily #History of dementia -monitor for any changes from baseline DVT prophylaxis: Lovenox 40 subcutaneously daily Diet: cardiac and diabetic diet Goals of care discussed with the patient for more than 27 minutes: Full code status Case discussed with Dr. Mccord, patient and nurse. Plan discussed with: Patient, Daughter My Orders Orders - FARHEEN GHOSH RESIDENT Procedure Category Date Status Time Admit ADMIT 02/08/25 Transmitted 00:09 Code Status CODE 02/08/25 Transmitted 00:09 Complete Blood Count LAB 02/08/25 Logged 04:00 Comprehensive LAB 02/08/25 Logged Metabolic Panel 04:00 Condition: Unstable LISA 02/08/25 In Process 00:09 Acetaminophen Tablet PHA 02/08/25 In Process (Tylenol Tablet) 00:15 Enoxaparin Sodium PHA 02/08/25 In Process (Lovenox) 00:15 Insulin Lantus PHA 02/08/25 In Process (Glargine) (Lantus) 10:00 Glucose Blood PHA 02/08/25 In Process (Accu-Chek Comfort 07:00 Insulin R (Human) PHA 02/08/25 In Process (Insulin R) 07:00 Dextrose 50% Syringe PHA 02/08/25 In Process 00:15 Losartan Tablet PHA 02/08/25 In Process (Cozaar Tablet) 10:00 Amlodipine Tablet PHA 02/08/25 In Process (Norvasc Tablet) 10:00 Atorvastatin (Lipitor) PHA 02/08/25 In Process 22:00 Aspirin Tablet PHA 02/08/25 In Process 10:00 Clopidogrel Bisulfate PHA 02/08/25 In Process (Plavix) 10:00 Cardiac DIET 02/08/25 Transmitted Diet-2gna,Lofat,Lochol Breakfast Magnesium LAB 02/08/25 Logged 00:09 Hepatic Panel LAB 02/08/25 Logged 00:09 Thyroid Stimulating LAB 02/08/25 Logged Hormone 00:09 Ammonia LAB 02/08/25 Logged 00:09 Lactic Acid W/ Reflex LAB 02/08/25 Logged Order 00:09 Blood Culture VINNY 02/08/25 Logged 00:09 Rapid Influenza A&B LAB 02/08/25 Logged 00:09 Covid19 Antigen Angie LAB 02/08/25 Logged Ceftriaxone 1gm/50ml PHA 02/08/25 In Process (Rocephin) 00:15 Urine Bacterial VINNY 02/08/25 Logged Culture 00:09 Sodium Chloride 0.9% PHA 02/08/25 In Process 00:15 Ceftriaxone 1gm/50ml PHA 02/09/25 In Process (Rocephin) 09:00 Date of Service: Feb 08, 2025 Billing Provider: ROXI MCCORD MD Common Visit Codes: [id number] INP/OBS CARE (HIGH) Secondary Visit Codes: [id number] CARE PLAN 30 MINUTES FARHEEN GHOSH RESIDENT Feb 08, 2025 00:46
[2025-02-08] MEDS: ENOXAPARIN SOD 40 MG/0.4 ML SYRINGE SC SCH (01:15)
[2025-02-08] MEDS: SODIUM CHLORIDE 0.9% 1,000 ML IV ONE (01:15)
[2025-02-08 01:40] LABS: Alanine Aminotransferase 15 U/L (7-40); Albumin 4.0 g/dL (3.2-4.8); Alkaline Phosphatase 81 U/L (46-116); Bilirubin, Direct < 0.1 mg/dL (<0.3); Bilirubin, Total 0.3 mg/dL (0.2-1.0); Magnesium 1.8 mg/dL (1.6-2.6); Total Protein 7.2 g/dL (5.7-8.2)
[2025-02-08 02:06] LABS: COVID19 ANTIGEN SOFIA FIA NEGATIVE (NEGATIVE)
[2025-02-08 06:23] LABS: Hematocrit 37.3 % (36.0-46.0); Hemoglobin 12.5 g/dL (12.2-16.2); Mean Corpuscular Hemoglobin 27.8 pg (28.0-32.0); Mean Corpuscular Volume 82.8 fL (80.0-100.0); Nucleated Red Blood Cells % 0.1 %
[2025-02-08 06:32] LABS: Alanine Aminotransferase 12 U/L (7-40); Albumin 3.7 g/dL (3.2-4.8); Alkaline Phosphatase 69 U/L (46-116); Anion Gap 12 (5-15); BUN/Creatinine Ratio 19.7 (10.0-20.0); Bilirubin, Total 0.3 mg/dL (0.2-1.0); Blood Urea Nitrogen 14 mg/dL (9-23); Calcium 10.0 mg/dL (8.7-10.4); Potassium 3.8 mmol/L (3.5-5.1); Sodium 142 mmol/L (136-145); Total Protein 6.7 g/dL (5.7-8.2)
[2025-02-08 06:33] LABS: Carbon Dioxide 20 mmol/L (20-31); Chloride 110 mmol/L (98-107); Glucose 238 mg/dL (74-106)
[2025-02-08] MEDS: ACCU-CHEK COMFORT CURVE STRIP VI SCH (06:38)
[2025-02-08] MEDS: InsuLIN REG 1unit/0.01ml Soln (100units/ml) SC SCH (06:45)
--- NOTE | 2025-02-08 06:54 | ECG ---
[facility] Test Date: 2025-02-07 Test Time: 19:41:52 Pat Name: SLOANE ESPINAL Department: [facility] ED Room: 0221 Gender: F Biologist Aide: HOLLY : 1950 Requested By: CLARISSA PEREZ Order Number: [id number] Reading MD: Marcos Morris Measurements Intervals Buckley Rate: 67 P: 39 NJ: 160 QRS: 24 QRSD: 86 T: 0 QT: 594 QTc: 628 Interpretive Statements Sinus rhythm Low voltage, precordial leads Borderline T abnormalities, anterior leads Prolonged QT interval Electronically Signed On 02-11-2025 10:55:00 PST by Marcos Morris Please click the below link to view image of tracing.
[2025-02-08] MEDS: CLOPIDOGREL BISULFATE 75 MG TAB PO SCH (10:13)
[2025-02-08] MEDS: LOSARTAN POTASSIUM 50 MG TAB PO SCH (10:14)
[2025-02-08] MEDS: INSULIN LANTUS (GLARGINE) 1 /0.01ml (100units/ml) SC SCH (10:30)
[2025-02-08 11:20] LABS: Urine Protein, UAD 1+ (Negative)
[2025-02-08 11:35] LABS: Amphetamine Screen, Urine Neg (NEGATIVE); Barbiturate Scree,Urine Neg (NEGATIVE); Benzodiazephine Screen, Urine Neg (NEGATIVE); Cannabinoid Screen, Urine Neg (NEGATIVE); Cocaine Screen, Urine Neg (NEGATIVE); Opiate Scree,Urine Neg (NEGATIVE); Phencyclidine Screen, Urine Neg (NEGATIVE)
[2025-02-08] MEDS: hydrALAZINE HCL 20 MG/ML VL IV ONE (13:21)
[2025-02-08] MEDS ORDERED: MEMA1TAB3 PO (16:07)
[2025-02-08] MEDS ORDERED: LOSA-535 PO (16:07)
[2025-02-08] MEDS ORDERED: ASPI-628 PO (16:07)
[2025-02-08] MEDS ORDERED: CLON0.2T PO (16:07)
[2025-02-08] MEDS ORDERED: TRAM50TA2 PO (16:07)
[2025-02-08] MEDS ORDERED: INSU100I54 SC (16:07)
[2025-02-08] MEDS ORDERED: INSU1.2I SC (16:07)
[2025-02-08] MEDS ORDERED: CLOP75TA70 PO (16:07)
[2025-02-08] MEDS ORDERED: QUET1TAB11 PO (16:07)
[2025-02-08] MEDS ORDERED: ATOR40TA52 PO (16:07)
[2025-02-08] MEDS ORDERED: HYDR25TA87 PO (16:07)
[2025-02-08] MEDS ORDERED: TRAZ-227 PO (16:07)
[2025-02-08] MEDS ORDERED: AMLO1TAB23 PO (16:07)
--- NOTE | 2025-02-08 19:58 | DVHPNRES ---
Progress Note Date Seen: Feb 08, 2025 Resident Creating Document: LENA GARNICA RESIDENT Has the PT tested + for MRSA If YES, has PT been informed?: No Medical Necessity Reason Pt with a Central, PICC or Fol: No Subjective Review of Systems Mrs. Guevara Hudson Naomi is a 74-year-old female, with a past medical history of dementia, CVA (December 19, 2024 with right side motor deficit), bed-bound, diabetes mellitus type 2, hyperlipidemia and hypertension. The patient came to the [facility] via EMS with chief complaint of 1 day of altered metal status that start progressively after taking 4 blood pressure medication at once (hydralazine 25, losartan 100 mg, amlodipine 10 mg and clonidine). After a while patient started to look sal garay, became pale, was clammy and diaphoretic as well as hyper somnolent and more confused than her baseline, which prompted her visit to the ED. The patient is a poor historian, the information was provided by her daughter who was at bedside. The patient's daughter denies any other complaints such as chest pain, abdominal pain, urinary symptoms, change in bowel habits, shortness of breath in the recent past. Vitals on admission BP 117/56 mmHg, HR 71, RR 14, pulse oximetry 95% in room air. CBC and BMP are normal, tropes are negative. The patient was admitted for further workup and management. PMH: As above PSH: None Family history: Reviewed, noncontributory the management of this case Social history: Does not drink alcohol, smoke or take any illicit drugs Allergies: None Code status: Full code Hospital course: On 02/08/25, the patient was examined and evaluated at bedside, VS, labs and chart was reviewed. BP has improved to 135/82mmhg, trending up. CT head is negative for intracranial hemorrhage. The patient is alert, her confusion has improved but she is not yet back to her baseline. The patient denies new complaints. I have address and answer patient and patient's daughter concern and questions. We will continue assessing this patient and evaluating her progress. ROS Constitutional: No: Fever, Chills, Sweats, Weakness, Malaise Eyes: No: Pain, Vision change, Conjunctivae inflammation, Eyelid inflammation, Other, Redness ENT: No: Ear pain, Ear discharge, Nose pain, Nose discharge, Nose congestion, Mouth pain, Mouth swelling, Throat pain, Throat swelling, Other Respiratory: No: Cough, Dry, Shortness of breath, SOB with excertion, Wheezing, Hemoptysis, Pleuritic Pain, Sputum, Wheezing, Other Cardiovascular: No: Chest Pain, Palpitations, Orthopnea, Paroxysmal Noc. Dyspnea, Edema, Lt Headedness, Other Genitourinary: No Dysuria, No Frequency, No Incontinence, No Hematuria, No Retention, No Other Musculoskeletal: No: other, neck pain, shoulder pain, arm pain, back pain, hand pain, leg pain, foot pain Skin: No: Rash, Lesions, Jaundice, Bruising, Other Neurological: Confusion has improved No: Weakness, Numbness, Incoordination, Change in speech, Seizures Allergies: No Known Drug Allergy (Verified Allergy, Unknown, 07/26/24) Objective vital signs Vital Sign Date Time Temp Pulse Resp B/P (MAP) Pulse Ox O2 Delivery O2 Flow Rate FiO2 02/08/25 17:39 98.2 79 20 175/72 (106) 97 98.2 02/08/25 15:26 Room Air* 0 21 medications Current Medications Medications Dose Ordered Sig/Wilfredo Route Start Time Stop Time Status Last Admin Dose Admin Acetaminophen 650 mg Q6HP PRN PO 02/08/25 00:15 Enoxaparin Sodium 40 mg DAILY SC 02/08/25 00:15 02/08/25 01:15 40 MG Insulin Glargine 30 units DAILY@1000 SC 02/08/25 10:00 02/08/25 10:30 30 UNITS Diagnostic Test (Pha) 1 strip ACHS 02/08/25 07:00 02/08/25 16:58 1 STRIP Insulin Human Regular ACHS SC 02/08/25 07:00 02/08/25 17:09 3 UNITS Dextrose 50 ml UD PRN IV 02/08/25 00:15 Losartan Potassium 100 mg DAILY PO 02/08/25 10:00 02/08/25 10:14 100 MG Amlodipine Besylate 10 mg DAILY PO 02/08/25 10:00 02/08/25 10:13 10 MG Atorvastatin Calcium 40 mg HS PO 02/08/25 22:00 Aspirin 81 mg DAILY PO 02/08/25 10:00 02/08/25 10:13 81 MG Clopidogrel Bisulfate 75 mg DAILY PO 02/08/25 10:00 02/08/25 10:13 75 MG Ceftriaxone Sodium 50 ml @ 100 mls/hr DAILY@09 IV 02/09/25 09:00 Examination General Appearance: laying in bed, not in acute distress, looks pale. HEENT: Atraumatic, Mucous membranes moist/pink Respiratory: Clear to auscultation, Normal air movement, No added sounds Cardiovascular: Regular rate, Normal S1, Normal S2, No murmurs Abdominal: Active bowel sounds, soft, no distention, no tenderness. Extremities: Right-sided upper and lower extremity motor deficit with decreased in tone, strength, sensation and ROM. Skin: No Significant rash. Neuro: speech is slow but coherent, responds to command. Sensorimotor deficits as above. Patient is bedbound. Psych/Mental Status: Alert, oriented in person and place, not in time. laboratory and microbiology Laboratory Tests 02/08/25 02:10 Test 02/08/25 02:10 Range/Units Serum Glucose 238 H 74-106 mg/dL Problem List/Assessment/Plan Problem List/Assessment/Plan #Acute metabolic encephalopathy possible due to UTI. #Rule out bacteremia - CT head shows: No acute intracranial abnormality. - chest x-ray: normal - TSH 1.43 - serum alcohol < 3 - lactic acid 1.4 - magnesium 1.8 - ammonia <10 - UDS: negative - COVID, influenza: negative - IV NS 0.9% 1 L bolus once and 100 cc/ hour once - blood culture - urine culture -Ceftriaxone 1g IV daily #Chronic Type 2 diabetes mellitus, uncontrolled. 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 -Losartan 100mg po daily -Amlodipine 10mg po daily #Chronic Hyperlipidemia - atorvastatin 40 mg p.o. daily #Chronic right side neurological deficit due to stroke (12/2024) - continue aspirin 81 mg daily - continue Plavix 75 mg daily #Chronic dementia -monitor for any changes from baseline Diet: Low carbohydrate and cardiac diet DVT prophylaxis Goals of care discussed with the patient > 35 min. Discussed plan of care with Dr. Lawrence Code status: Full code PCP: Yo. Plan discussed with: Patient's daughter, the patient agrees with the plan. Plan discussed with: Patient, Daughter Date of Service: Feb 08, 2025 Billing Provider: ROXI LAWRENCE MD Common Visit Codes: [id number] INP/OBS CARE(HIGH) NAHUNLENA RESIDENT Feb 08, 2025 19:58
[2025-02-08] MEDS ORDERED: LOSARTAN POTASSIUM 50 MG TAB PO ONE (20:45)
[2025-02-08] MEDS: ATORVASTATIN 20 MG TAB PO SCH (22:03)
[2025-02-09] VITALS (14 sets, daily range): BP systolic 137–209; BP diastolic 67–98; PULSE 72–87; RESP 16–20; TEMP 97.8–98.1; O2SAT 94–97
[2025-02-09] MEDS: hydrALAZINE HCL 20 MG/ML VL IV PRN (03:06)
[2025-02-09] MEDS: LABETALOL HCL 20 MG/4 ML VL IV ONE ×2 (06:00→16:30)
[2025-02-09] MEDS ORDERED: VANCOMYCIN PER PHARMACY 0 MG IV SCH (07:45)
[2025-02-09] MEDS: VANCOMYCIN 1GM/250ML KIT 250 ML IV SCH (09:05)
--- NOTE | 2025-02-09 18:35 | DVHPNRES ---
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 The patient came to the [facility] via EMS with chief complaint of 1 day of altered metal status that started progressively after taking 4 blood pressure medications at once (hydralazine 25mg, losartan 100 mg, amlodipine 10 mg and clonidine 0.2mg). After a while, patient started to look sal garay, became pale, was clammy and diaphoretic as well as hyper somnolent and more confused than her baseline, which prompted her visit to the ED. The patient is a poor historian, the information was provided by her daughter who was at bedside. The patient's daughter denies any other complaints such as chest pain, abdominal pain, urinary symptoms, change in bowel habits, shortness of breath in the recent past. PMH: As above PSH: None Family history: Reviewed, noncontributory the management of this case Social history: Does not drink alcohol, smoke or take any illicit drugs Allergies: None Code status: Full code ROS Constitutional: No: Fever, Chills, Sweats, Weakness, Malaise Eyes: No: Pain, Vision change, Conjunctivae inflammation, Eyelid inflammation, Other, Redness ENT: No: Ear pain, Ear discharge, Nose pain, Nose discharge, Nose congestion, Mouth pain, Mouth swelling, Throat pain, Throat swelling, Other Respiratory: No: Cough, Dry, Shortness of breath, SOB with excertion, Wheezing, Hemoptysis, Pleuritic Pain, Sputum, Wheezing, Other Cardiovascular: No: Chest Pain, Palpitations, Orthopnea, Paroxysmal Noc. Dyspnea, Edema, Lt Headedness, Other Genitourinary: No Dysuria, No Frequency, No Incontinence, No Hematuria, No Retention, No Other Musculoskeletal: No: other, neck pain, shoulder pain, arm pain, back pain, hand pain, leg pain, foot pain Skin: No: Rash, Lesions, Jaundice, Bruising, Other Neurological: Confusion has improved No: Weakness, Numbness, Incoordination, Change in speech, Seizures Allergies: No Known Drug Allergy (Verified Allergy, Unknown, 07/26/24) Hospital course: On 02/08/25, the patient was examined and evaluated at bedside, VS, labs and chart was reviewed. BP has improved to 135/82mmhg, trending up. CT head is negative for intracranial hemorrhage. The patient is alert, her confusion has improved but she is not yet back to her baseline. The patient denies new complaints. I have addressed and answered patient and patient's daughter concerns and questions. We will continue assessing this patient and evaluating her progress. 02/09/25- Patient was seen and examined at bedside. Vitals, labs and chart were reviewed. The patient mentioned she feels better today. High blood pressure reading was reported, nifedipine 60 mg p.o. daily was added to the regimen and amlodipine was discontinued. Blood culture showed growth of Gram-positive cocci in clusters. Repeat blood culture was ordered and patient was started on IV vancomycin per pharmacy. Echo was done, pending report. Cardiology consult for possible EROS was placed, pending evaluation. Objective vital signs Vital Sign Date Time Temp Pulse Resp B/P (MAP) Pulse Ox O2 Delivery O2 Flow Rate FiO2 02/09/25 16:30 88 209/91 02/09/25 09:12 97.8 18 95 97.8 02/09/25 08:15 Room Air* 0 21 Total Intake and Output 02/08/25 02/08/25 02/09/25 15:00 23:00 07:00 Intake Total 1000 ml 240 ml 300 ml Balance 1000 ml 240 ml 300 ml medications Current Medications Medications Dose Ordered Sig/Wilfredo Route Start Time Stop Time Status Last Admin Dose Admin Acetaminophen 650 mg Q6HP PRN PO 02/08/25 00:15 Enoxaparin Sodium 40 mg DAILY SC 02/08/25 00:15 02/09/25 11:06 40 MG Insulin Glargine 30 units DAILY@1000 SC 02/08/25 10:00 02/09/25 11:48 30 UNITS Diagnostic Test (Pha) 1 strip ACHS 02/08/25 07:00 02/09/25 17:34 1 STRIP Insulin Human Regular ACHS SC 02/08/25 07:00 02/09/25 17:41 3 UNITS Dextrose 50 ml UD PRN IV 02/08/25 00:15 Losartan Potassium 100 mg DAILY PO 02/08/25 10:00 02/09/25 11:09 100 MG Atorvastatin Calcium 40 mg HS PO 02/08/25 22:00 02/08/25 22:03 40 MG Aspirin 81 mg DAILY PO 02/08/25 10:00 02/09/25 11:07 81 MG Clopidogrel Bisulfate 75 mg DAILY PO 02/08/25 10:00 02/09/25 11:07 75 MG Ceftriaxone Sodium 50 ml @ 100 mls/hr DAILY@09 IV 02/09/25 09:00 02/09/25 09:06 100 MLS/HR Hydralazine HCl 10 mg Q6HP PRN IV 02/08/25 23:30 02/09/25 03:06 10 MG Vancomycin HCl 0 ml @ 0 mls/hr PER PHARMACY IV 02/09/25 07:45 Hydralazine HCl 25 mg Q12HR PO 02/09/25 22:00 Nifedipine 60 mg DAILY PO 02/10/25 10:00 Vancomycin HCl 250 ml @ 200 mls/hr DAILY IV 02/10/25 10:00 Examination General Appearance: laying in bed, not in acute distress, looks pale. HEENT: Atraumatic, Mucous membranes moist/pink Respiratory: Clear to auscultation, Normal air movement, No added sounds Cardiovascular: Regular rate, Normal S1, Normal S2, No murmurs Abdominal: Active bowel sounds, soft, no distention, no tenderness. Extremities: Right-sided upper and lower extremity motor deficit with reduced tone, strength, sensation and ROM. Skin: No Significant rash. Neuro: speech is slow but coherent, responds to command. Sensorimotor deficits as above. Patient is bedbound. Psych/Mental Status: Alert, oriented in person and place, not in time laboratory and microbiology Laboratory Tests 02/08/25 02:10 Test 02/08/25 02:10 Range/Units Serum Glucose 238 H 74-106 mg/dL Microbiology Date/Time Source Procedure Growth Status 02/08/25 09:15 Voided Urine Urine Culture - Preliminary No growth Resulted 02/08/25 01:00 Blood Blood Culture - Preliminary Resulted Labs and/or images reviewed: Labs reviewed by me, Image(s) reviewed by me Problem List/Assessment/Plan Problem List/Assessment/Plan #Acute metabolic encephalopathy possible due to UTI. #Bacteremia- gram positive cocci - blood culture grew gram positive cocci in clusters - ordered repeat blood culture - started vancomycin per pharmacy - Echo ordered, pending report -cardiology consult for EROS placed, pedning evaluation - CT head shows: No acute intracranial abnormality. 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 -Losartan 100mg po daily -Nifedipine 60mg po daily #Chronic Hyperlipidemia - atorvastatin 40 mg p.o. 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 Plan discussed with Dr Lawrence Code status: Full code PCP: Yo. Plan discussed with: Patient's daughter, the patient agrees with the plan. Plan discussed with: Patient My Orders My Orders Orders - ANGELICA LOFTON Procedure Category Date Status Time Discontinue Tele LISA 02/09/25 In Process 12:30 Transfer Orders XFER 02/09/25 Transmitted 12:30 Communication Order ORDERS 02/09/25 Transmitted 12:31 Hydralazine Hcl PHA 02/09/25 In Process Tablet (Apresoline 22:00 Nifedipine Er PHA 02/10/25 In Process (Procardia Xl 10:00 * Cardiology Consult CONS 02/09/25 Transmitted 16:08 Date of Service: Feb 09, 2025 Billing Provider: ROXI LAWRENCE MD Common Visit Codes: [id number] INP/OBS CARE(HIGH) ANGELICA LOFTON RESIDENT Feb 09, 2025 18:35
[2025-02-10] VITALS (7 sets, daily range): BP systolic 122–167; BP diastolic 70–81; PULSE 71–88; RESP 16–20; TEMP 97–98.2; O2SAT 94–97
[2025-02-10 06:28] LABS: Hematocrit 34.9 % (36.0-46.0); Hemoglobin 11.4 g/dL (12.2-16.2); Mean Corpuscular Hemoglobin 27.1 pg (28.0-32.0); Mean Corpuscular Volume 82.6 fL (80.0-100.0); Nucleated Red Blood Cells % 0.2 %
[2025-02-10] MEDS: VANCOMYCIN 1.25GM/250ML 250 ML IV SCH (09:36)
--- NOTE | 2025-02-10 10:59 | DVHSR ---
APPROVED REPORT EXAM: Two-dimensional and M-mode echocardiogram with Doppler and color Doppler. Blood Pressure: 146/77 mmHg INDICATION rule our infective endocarditis RISK FACTORS Obesity: Height: 5'8, Weight: 174 DIMENSIONS LVDd 3.8 (3.8-5.7cm) LA (2D) 4.3 (1.9-4.0cm) Aortic Root (2.0-3.7cm) LVDs 2.5 (2.5-4.0cm) LA (MM) (1.9-4.0cm) Aortic Cusp Exc (1.5-2.0cm) EF (%) 60.0 (55-70%) Rt. Atrium 3.6 (1.9-4.0cm) Asc. Aorta cm IVSd 1.0 (0.7-1.1cm) RV (D) (1.8-2.4cm) PWd 1.0 (0.7-1.1cm) Mitral Valve Mitral Mitral Stenosis E wave 0.65m/s MV Mean GR. mmHg A wave 1.00m/s MV Peak GR. 46mmHg E/A ratio 0.6 2D MVA cm2 DECEL Time 232ms PRESS 1/2 Time ms Aortic Valve Aortic Valve Aortic Stenosis V1 1.12m/s AO Mean GR. 4mmHg V2 1.23m/s AO Peak GR. 6mmHg LVOT Diameter 2.0 (1.8-2.4cm) Doppler ERASMO 2.86cm2 Tricuspid Valve RVSP 8mmHg Other Information Technically limited study due to PT stating she doesnt like to lay down, sitting up during exam. Conclusion EF >55% MILD AV SCLEROSIS TRACE AI LAE MILD TR MILD MR
--- NOTE | 2025-02-10 13:47 | DVHCONRES ---
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 The patient came to the [facility] via EMS with chief complaint of 1 day of altered metal status that started progressively after taking 4 blood pressure medications at once (hydralazine 25mg, losartan 100 mg, amlodipine 10 mg and clonidine 0.2mg). After a while, patient started to look sal garay, became pale, was clammy and diaphoretic as well as hyper somnolent and more confused than her baseline, which prompted her visit to the ED. The patient is a poor historian, the information was provided by her daughter who was at bedside. The patient's daughter denies any other complaints such as chest pain, abdominal pain, urinary symptoms, change in bowel habits, shortness of breath in the recent past. Cardiology was consulted for EROS due to bacteremia in 2 sets of blood cultures. PMH: As above PSH: None Family history: Reviewed, noncontributory the management of this case Social history: Does not drink alcohol, smoke or take any illicit drugs Allergies: None ROS: Patient seen and examined at the bedside. Patient is currently reported no new complaints and improved since admission. Family History: Diabetes mellitus MOTHER Hypertension MOTHER FATHER Allergies: Coded Allergies: No Known Drug Allergy (Verified Allergy, Unknown, 07/26/24) Home Meds Reported Medications Clonidine Hydrochloride (Clonidine Hcl) 0.2 Mg Tab, 1 TAB PO BIDPRN PRN for blood pressure 02/08/25 Hydralazine HCl (Hydralazine HCl) 25 Mg Tab, 1 TAB PO BID 02/08/25 Losartan Potassium (Losartan Potassium) 100 Mg Tab, 1 TAB PO DAILY 02/08/25 Amlodipine Besylate (Amlodipine Besylate) 10 Mg Tab, 1 TAB PO DAILY 02/08/25 Memantine Hydrochloride (Memantine HCl) 5 Mg Tab, 1 TAB PO DAILY 02/08/25 Trazodone Hcl (Trazodone Hcl) 50 Mg Tab, 1 TAB PO 02/08/25 Insulin Lispro (Insulin Lispro Kwikpen) 100 Unit/Ml Inj, 15 UNIT SC BID 02/08/25 Insulin Glargine (Toujeo Solostar) 300 Unit/Ml Inj, 50 UNIT SC DAILY 02/08/25 Aspirin (Aspirin Adult Low Dose) 81 Mg Tab, 1 TAB PO DAILY 02/08/25 Quetiapine Fumerate (QUETIAPINE FUMARATE) 25 Mg Tab, 1 TAB PO DAILY 02/08/25 Atorvastatin Calcium (ATORVASTATIN CALCIUM) 40 Mg Tab, 40 MG PO DAILY 02/08/25 Clopidogrel Bisulfate (CLOPIDOGREL) 75 Mg Tab, 1 TAB PO DAILY 02/08/25 Tramadol Hcl (Tramadol Hcl) 50 Mg Tab, 1 TAB PO DAILY 02/08/25 Current Medications Current Medications Medications (Trade) Dose Ordered Sig/Wilfredo Route PRN Reason Start Time Stop Time Status Last Admin Amlodipine Besylate (Norvasc Tablet) 10 mg DAILY PO 02/10/25 10:00 02/09/25 16:08 DC Hydralazine HCl (Apresoline Tablet) 25 mg Q12HR PO 02/09/25 22:00 02/09/25 18:16 DC Nifedipine (Procardia Xl (Time-Release)) 60 mg DAILY PO 02/10/25 10:00 02/10/25 10:22 Vancomycin HCl 250 ml @ 200 mls/hr DAILY IV 02/10/25 10:00 02/10/25 09:36 Clonidine HCl (Catapres Tablet) 0.2 mg Q6HP PRN PO SBP>160 02/09/25 18:15 02/09/25 18:27 DC Hydralazine HCl (Apresoline Tablet) 25 mg Q8HR PO 02/09/25 22:00 02/10/25 07:09 Clonidine HCl (Catapres Tablet) 0.2 mg Q6HP PRN PO SBP>150 02/09/25 18:30 02/09/25 18:29 DC Clonidine HCl (Catapres Tablet) 0.2 mg Q6HP PRN PO SBP>160 02/09/25 18:30 02/10/25 01:49 Hydralazine HCl (Apresoline Injection) 10 mg Q6HP PRN IV SBP>150 02/09/25 18:30 Vital Signs Vital Signs Date Time Temp Pulse Resp B/P (MAP) Pulse Ox O2 Delivery O2 Flow Rate FiO2 02/10/25 10:22 129/78 02/10/25 10:15 71 02/10/25 09:00 97.5 16 97 97.5 02/10/25 08:15 Room Air* 0 21 Physical Exam General Appearance: laying in bed, not in acute distress, looks pale. HEENT: Atraumatic, Mucous membranes moist/pink Respiratory: Clear to auscultation, Normal air movement, No added sounds Cardiovascular: Regular rate, Normal S1, Normal S2, No murmurs Abdominal: Active bowel sounds, soft, no distention, no tenderness. Extremities: Right-sided upper and lower extremity motor deficit with reduced tone, strength, sensation and ROM. Skin: No Significant rash. Neuro: speech is slow but coherent, responds to command. Sensorimotor deficits as above. Patient is bedbound. Psych/Mental Status: Alert, oriented in person and place, not in time Labs/Diagnostic Data Labs Test 02/10/25 10:25 02/10/25 05:48 02/08/25 09:15 02/08/25 02:10 Range/Units POC Glucose 256 H 70-106 mg/dl White Blood Count 6.0 4.4-10.8 10^3/uL Red Blood Count 4.23 4.0-5.20 10^6/uL Hemoglobin 11.4 L 12.2-16.2 g/dL Hematocrit 34.9 L 36.0-46.0 % Mean Corpuscular Volume 82.6 80.0-100.0 fL Mean Corpuscular Hemoglobin 27.1 L 28.0-32.0 pg Mean Corpuscular Hemoglobin Concent 32.8 32.0-36.0 g/dL Red Cell Distribution Width 15.1 H 11.8-14.3 % Platelet Count 341 140-450 10^3/uL Mean Platelet Volume 8.3 6.9-10.8 fL Neutrophils (%) (Auto) 34.4 L 37.0-80.0 % Lymphocytes (%) (Auto) 50.9 H 10.0-50.0 % Monocytes (%) (Auto) 10.2 0.0-12.0 % Eosinophils (%) (Auto) 3.6 0.0-7.0 % Basophils (%) (Auto) 0.9 0.0-2.0 % Neutrophils # (Auto) 2.1 1.6-8.6 10 ^3/uL Lymphocytes # (Auto) 3.1 0.4-5.4 10 ^3/uL Monocytes # (Auto) 0.6 0-1.3 10 ^3/uL Eosinophils # (Auto) 0.2 0-0.8 10 ^3/uL Basophils # (Auto) 0.1 0-0.2 10 ^3/uL Nucleated Red Blood Cells 0.2 % Creatinine 0.61 0.550-1.02 mg/dL Glomerular Filtration Rate Calc 94 >90 mL/min Urine Color Yellow Yellow Urine Clarity Turbid H Clear Urine pH 5.0 5.0-9.0 Urine Specific Crowley 1.031 1.001-1.035 Urine Protein 1+ H Negative Urine Ketones Negative Negative Urine Blood Negative Negative /uL Urine Nitrite Negative Negative Urine Bilirubin Negative Negative Urine Urobilinogen Normal Negative mg/dL Urine Leukocyte Esterase Negative Negative /uL Urine RBC 2 0 - 4 /hpf Urine Microscopic WBC 1 0-5 /HPF Urine Squamous Epithelial Cells Few <5 /hpf Urine Bacteria Few H None Seen /hpf Urine Hyaline Casts Few 0 - 2 /lpf Urine Mucus Few None Seen Urine Glucose 2+ H Normal mg/dL Urine Opiates Screen Neg NEGATIVE Urine Fentanyl Screen Neg NEGATIVE Urine Barbiturates Screen Neg NEGATIVE Urine Phencyclidine Screen Neg NEGATIVE Urine Amphetamines Screen Neg NEGATIVE Urine Benzodiazepines Screen Neg NEGATIVE Urine Cocaine Screen Neg NEGATIVE Urine Cannabinoids Screen Neg NEGATIVE Sodium Level 142 136-145 mmol/L Potassium Level 3.8 3.5-5.1 mmol/L Chloride Level 110 H 98-107 mmol/L Carbon Dioxide Level 20 20-31 mmol/L Anion Gap 12 5-15 Blood Urea Nitrogen 14 9-23 mg/dL BUN/Creatinine Ratio 19.7 10.0-20.0 Serum Glucose 238 H 74-106 mg/dL Hemoglobin A1c 8.4 H <5.7 % A1C Calcium Level 10.0 8.7-10.4 mg/dL Total Bilirubin 0.3 0.2-1.0 mg/dL Aspartate Amino Transferase (AST) 13 13-40 U/L Alanine Aminotransferase (ALT) 12 7-40 U/L Alkaline Phosphatase 69 46-116 U/L Ammonia < 10 L 11-32 umol/L Total Protein 6.7 5.7-8.2 g/dL Albumin 3.7 3.2-4.8 g/dL Test 02/08/25 01:20 02/08/25 00:50 02/07/25 21:00 Range/Units Influenza Type A Antigen Negative Negative Influenza Type B Antigen Negative Negative SARS-CoV-2 Antigen (Rapid) Negative NEGATIVE Lactic Acid Level 1.4 0.4-2.0 mmol/L Magnesium Level 1.8 1.6-2.6 mg/dL Direct Bilirubin < 0.1 <0.3 mg/dL Troponin I High Sensitivity 4 </=34 ng/L Thyroid Stimulating Hormone (TSH) 1.43 0.55-4.78 uIU/mL Plasma/Serum Blood Alcohol < 3.0 <10 mg/dL Microbiology Date/Time Source Procedure Growth Status 02/08/25 09:15 Voided Urine Urine Culture - Final Complete 02/08/25 01:00 Blood Blood Culture - Preliminary Resulted Assessment Gram-positive bacteremia with a coagulase-negative Staph Acute metabolic encephalopathy Uncontrolled type 2 DM Chronic diastolic CHF Plan/Recommendation We will continue with the following plan/recommendations (Dr. 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 All risks and benefits explained Rest of management as per primary team Discussed with Dr. Colindres. Plan discussed with: Patient Date of Service: Feb 10, 2025 Billing Provider: BARBIE GOODMAN MD Common Visit Codes: [id number] CARE 30-74 MIN LIDA CEJA RESIDENT Feb 10, 2025 13:47
--- NOTE | 2025-02-10 15:54 | DVHPNRES ---
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 The patient came to the [facility] via EMS with chief complaint of 1 day of altered metal status that start progressively after taking 4 blood pressure medication at once (hydralazine 25, losartan 100 mg, amlodipine 10 mg and clonidine). After a while patient started to look sal garay, became pale, was clammy and diaphoretic as well as hyper somnolent and more confused than her baseline, which prompted her visit to the ED. The patient is a poor historian, the information was provided by her daughter who was at bedside. The patient's daughter denies any other complaints such as chest pain, abdominal pain, urinary symptoms, change in bowel habits, shortness of breath in the recent past. Vitals on admission BP 117/56 mmHg, HR 71, RR 14, pulse oximetry 95% in room air. CBC and BMP are normal, tropes are negative. The patient was admitted for further workup and management. PMH: As above PSH: None Family history: Reviewed, noncontributory the management of this case Social history: Does not drink alcohol, smoke or take any illicit drugs Allergies: None Code status: Full code Hospital course: On 02/08/25, the patient was examined and evaluated at bedside, VS, labs and chart was reviewed. BP has improved to 135/82mmhg, trending up. CT head is negative for intracranial hemorrhage. The patient is alert, her confusion has improved but she is not yet back to her baseline. The patient denies new complaints. I have address and answer patient and patient's daughter concern and questions. We will continue assessing this patient and evaluating her progress. On02/09/25, Patient was seen and examined at bedside. Vitals, labs and chart were reviewed. The patient mentioned she feels better today. High blood pressure reading was reported, nifedipine 60 mg p.o. daily was added to the regimen and amlodipine was discontinued. Blood culture showed growth of Gram-positive cocci in clusters. Repeat blood culture was ordered and patient was started on IV vancomycin per pharmacy. Echo was done, pending report. Cardiology consult for possible EROS was placed, pending evaluation. On 02/10/25, the patient was examined and evaluated at bedside, VS, labs and chart was reviewed. BP has improved to 122/70 mmhg. Preliminary blood cultures report: Coagulase negative staphylococcus. The patient continues on Ceftriaxone and Vancomycin IV. We will wait for the complete report and sensitivity. Cardiology is onboard; The ECHO performed report was inconclusive, therefore a new EROS was ordered, this will be performed tomorrow 02/11/[address] Colindres. The patient will be NPO starting at midnight. Today, the patient reports doing better, she denies new complaints. I have spoken with the patient and patient's daughter and I have addressed all their concerns and questions satisfactory. We will continue assessing this patient and evaluating her progress. ROS Constitutional: No: Fever, Chills, Sweats, Weakness, Malaise Eyes: No: Pain, Vision change, Conjunctivae inflammation, Eyelid inflammation, Other, Redness ENT: No: Ear pain, Ear discharge, Nose pain, Nose discharge, Nose congestion, Mouth pain, Mouth swelling, Throat pain, Throat swelling, Other Respiratory: No: Cough, Dry, Shortness of breath, SOB with excertion, Wheezing, Hemoptysis, Pleuritic Pain, Sputum, Wheezing, Other Cardiovascular: No: Chest Pain, Palpitations, Orthopnea, Paroxysmal Noc. Dyspnea, Edema, Lt Headedness, Other Genitourinary: No Dysuria, No Frequency, No Incontinence, No Hematuria, No Retention, No Other Musculoskeletal: No: other, neck pain, shoulder pain, arm pain, back pain, hand pain, leg pain, foot pain Skin: No: Rash, Lesions, Jaundice, Bruising, Other Neurological: Confusion has improved No: Weakness, Numbness, Incoordination, Change in speech, Seizures Allergies: No Known Drug Allergy (Verified Allergy, Unknown, 07/26/24) Objective vital signs Vital Sign Date Time Temp Pulse Resp B/P (MAP) Pulse Ox O2 Delivery O2 Flow Rate FiO2 02/10/25 13:00 98.2 81 18 157/75 (102) 96 98.2 02/10/25 08:15 Room Air* 0 21 Total Intake and Output 02/09/25 02/09/25 02/10/25 15:00 23:00 07:00 Intake Total 550 ml 460 ml 460 ml Output Total 550 ml Balance 550 ml 460 ml -90 ml medications Current Medications Medications Dose Ordered Sig/Wilfredo Route Start Time Stop Time Status Last Admin Dose Admin Acetaminophen 650 mg Q6HP PRN PO 02/08/25 00:15 Enoxaparin Sodium 40 mg DAILY SC 02/08/25 00:15 02/10/25 10:23 40 MG Insulin Glargine 30 units DAILY@1000 SC 02/08/25 10:00 02/10/25 10:42 30 UNITS Diagnostic Test (Pha) 1 strip ACHS 02/08/25 07:00 02/10/25 10:42 1 STRIP Insulin Human Regular ACHS SC 02/08/25 07:00 02/10/25 10:43 6 UNITS Dextrose 50 ml UD PRN IV 02/08/25 00:15 Losartan Potassium 100 mg DAILY PO 02/08/25 10:00 02/10/25 10:22 100 MG Atorvastatin Calcium 40 mg HS PO 02/08/25 22:00 02/09/25 22:39 40 MG Aspirin 81 mg DAILY PO 02/08/25 10:00 02/10/25 10:22 81 MG Clopidogrel Bisulfate 75 mg DAILY PO 02/08/25 10:00 02/10/25 10:22 75 MG Ceftriaxone Sodium 50 ml @ 100 mls/hr DAILY@09 IV 02/09/25 09:00 02/10/25 09:35 100 MLS/HR Vancomycin HCl 0 ml @ 0 mls/hr PER PHARMACY IV 02/09/25 07:45 Nifedipine 60 mg DAILY PO 02/10/25 10:00 02/10/25 10:22 60 MG Vancomycin HCl 250 ml @ 200 mls/hr DAILY IV 02/10/25 10:00 02/10/25 09:36 200 MLS/HR Hydralazine HCl 25 mg Q8HR PO 02/09/25 22:00 02/10/25 07:09 25 MG Clonidine HCl 0.2 mg Q6HP PRN PO 02/09/25 18:30 02/10/25 01:49 0.2 MG Hydralazine HCl 10 mg Q6HP PRN IV 02/09/25 18:30 Examination General Appearance: laying in bed, not in acute distress, looks pale. HEENT: Atraumatic, Mucous membranes moist/pink Respiratory: Clear to auscultation, Normal air movement, No added sounds Cardiovascular: Regular rate, Normal S1, Normal S2, No murmurs Abdominal: Active bowel sounds, soft, no distention, no tenderness. Extremities: Right-sided upper and lower extremity motor deficit with reduced tone, strength, sensation and ROM. Skin: No Significant rash. Neuro: speech is slow but coherent, responds to command. Sensorimotor deficits as above. Patient is bedbound. Psych/Mental Status: Alert, oriented in person and place, not in time laboratory and microbiology Laboratory Tests 02/10/25 05:48 02/08/25 02:10 Test 02/08/25 02:10 Range/Units Serum Glucose 238 H 74-106 mg/dL Microbiology Date/Time Source Procedure Growth Status 02/08/25 09:15 Voided Urine Urine Culture - Final Complete 02/08/25 01:00 Blood Blood Culture - Preliminary Resulted Problem List/Assessment/Plan Problem List/Assessment/Plan #Acute metabolic encephalopathy possible due to Bacteremia #Acute bacteremia: blood culture coagulase negative staphylococcus - CT head shows: No acute intracranial abnormality. - chest x-ray: normal - TSH 1.43 - serum alcohol < 3 - lactic acid 1.4 - magnesium 1.8 - ammonia <10 - UDS: negative - COVID, influenza: negative - IV NS 0.9% 1 L bolus once and 100 cc/ hour once - blood culture: blood culture coagulase negative staphylococcus - urine culture pending report. -Ceftriaxone 1g IV daily -Vancomycin IV per pharmacy. - ECHO: EF>55, limited. -Cardiology consult: EROS will be performed 02/11/[address] Colindres. #Chronic Type 2 diabetes mellitus, uncontrolled. 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 -Losartan 100mg po daily -Amlodipine 10mg po daily -Clonidine 0.2mg po 6hrs prn BP>150/90mmHg -Nifedipine 60mg po daily #Chronic Hyperlipidemia - atorvastatin 40 mg p.o. 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 NPO at midnight for procedure EROS. DVT prophylaxis Goals of care discussed with the patient > 35 min. Discussed plan of care with Dr. Lawrence Code status: Full code PCP: Dr. Ram. Plan discussed with: Patient's daughter, the patient agrees with the plan. Plan discussed with: Patient, Daughter My Orders My Orders Orders - LENA GARNICA Procedure Category Date Status Time Communication Order ORDERS 02/10/25 Transmitted 11:56 Npo After Midnight LISA 02/10/25 In Process 13:41 * Cardiology Consult CONS 02/10/25 Transmitted 13:44 Date of Service: Feb 10, 2025 Billing Provider: ROXI LAWRENCE MD Common Visit Codes: [id number] INP/OBS CARE(HIGH) LENA GARNICA RESIDENT Feb 10, 2025 15:53
[2025-02-10] MEDS: hydrALAZINE HCL 20 MG/ML VL IV PRN (21:55)
[2025-02-11 05:00] VITALS: BP 123/99; PULSE 75; RESP 17; TEMP 98.2; O2SAT 97
[2025-02-11 06:55] LABS: Hematocrit 38.5 % (36.0-46.0); Hemoglobin 12.8 g/dL (12.2-16.2); Mean Corpuscular Hemoglobin 27.8 pg (28.0-32.0); Mean Corpuscular Volume 83.5 fL (80.0-100.0); Nucleated Red Blood Cells % 0.0 %
[2025-02-11 07:07] LABS: Anion Gap 11 (5-15); Carbon Dioxide 24 mmol/L (20-31); Chloride 103 mmol/L (98-107); Potassium 3.8 mmol/L (3.5-5.1); Sodium 138 mmol/L (136-145)
[2025-02-11 07:13] LABS: BUN/Creatinine Ratio 13.0 (10.0-20.0)
[2025-02-11 07:23] LABS: Blood Urea Nitrogen 7 mg/dL (9-23); Calcium 10.7 mg/dL (8.7-10.4); Glucose 110 mg/dL (74-106)
[2025-02-11 08:00] VITALS: PULSE 86; RESP 16
[2025-02-11 09:00] VITALS: BP 157/89; PULSE 89; RESP 16; TEMP 97.7; O2SAT 94
--- NOTE | 2025-02-11 10:28 | MEDREC ---
[facility] ASP Intervention Section I [facility] ASP Intervention: Deescalate AB based on CS (Please de-escalate current antibiotics based on susceptibility result. Recommend cefazolin or nafcilin) PETRA FRANK [facility] RESIDENT Feb 11, 2025 10:28
--- NOTE | 2025-02-11 12:45 | DVHPN2 ---
Progress Note - Dictate Date Seen: Feb 10, 2025 Has the PT tested + for MRSA If YES, has PT been informed?: No Medical Necessity Reason Pt with a Central, PICC or Fol: No Subjective PT WITH SEPSIS POSITIVE BLD CX AMS DEMENTIA( MULTI INFARCT CVA LEFT SIDED WITH RIGHT SIDE WEAKNESS HTN DIABETES VASCULOPATHY NEUROPATHY NEPHROPATHY vital signs Vital Sign Date Time Temp Pulse Resp B/P (MAP) Pulse Ox O2 Delivery O2 Flow Rate FiO2 02/11/25 10:24 157/86 02/11/25 05:00 98.2 75 17 97 98.2 02/10/25 20:00 Room Air* 0 21 Total Intake and Output 02/10/25 02/10/25 02/11/25 15:00 23:00 07:00 Intake Total 300 ml 346 ml 260 ml Balance 300 ml 346 ml 260 ml medications Current Medications Medications Dose Ordered Sig/Wilfredo Route Start Time Stop Time Status Last Admin Dose Admin Acetaminophen 650 mg Q6HP PRN PO 02/08/25 00:15 Enoxaparin Sodium 40 mg DAILY SC 02/08/25 00:15 02/11/25 10:26 40 MG Insulin Glargine 30 units DAILY@1000 SC 02/08/25 10:00 02/10/25 10:42 30 UNITS Diagnostic Test (Pha) 1 strip ACHS 02/08/25 07:00 02/11/25 11:42 1 STRIP Insulin Human Regular ACHS SC 02/08/25 07:00 02/10/25 21:41 3 UNITS Dextrose 50 ml UD PRN IV 02/08/25 00:15 Losartan Potassium 100 mg DAILY PO 02/08/25 10:00 02/11/25 10:24 100 MG Atorvastatin Calcium 40 mg HS PO 02/08/25 22:00 02/09/25 22:39 40 MG Aspirin 81 mg DAILY PO 02/08/25 10:00 02/11/25 10:25 81 MG Clopidogrel Bisulfate 75 mg DAILY PO 02/08/25 10:00 02/11/25 10:24 75 MG Ceftriaxone Sodium 50 ml @ 100 mls/hr DAILY@09 IV 02/09/25 09:00 02/11/25 10:26 100 MLS/HR Vancomycin HCl 0 ml @ 0 mls/hr PER PHARMACY IV 02/09/25 07:45 Nifedipine 60 mg DAILY PO 02/10/25 10:00 02/11/25 10:24 60 MG Vancomycin HCl 250 ml @ 200 mls/hr DAILY IV 02/10/25 10:00 02/11/25 11:34 200 MLS/HR Hydralazine HCl 25 mg Q8HR PO 02/09/25 22:00 02/10/25 16:02 25 MG Clonidine HCl 0.2 mg Q6HP PRN PO 02/09/25 18:30 02/10/25 01:49 0.2 MG Hydralazine HCl 10 mg Q6HP PRN IV 02/09/25 18:30 02/10/25 21:55 10 MG laboratory and microbiology Laboratory Tests 02/11/25 05:45 Test 02/11/25 05:45 Range/Units Serum Glucose 110 H 74-106 mg/dL Problem List SEPSIS POSITIVE BLD CX AMS DEMENTIA( MULTI INFARCT CVA LEFT SIDED WITH RIGHT SIDE WEAKNESS HTN DIABETES VASCULOPATHY NEUROPATHY NEPHROPATHY UTI LACTOBACILLUS Assessment/Plan SINCE BACTEREMIC COAGULASE NEGATIVE STAPH STAPH HOMINIS SCHEDULE FOR EROS TTE EF >55% MILD AV SCLEROSIS TRACE AI LAE MILD TR MILD MR NO TTE EVIDENCE FOR VALVULAR VEGETATION Plan discussed with: Patient BARBIE GOODMAN MD Feb 11, 2025 12:45
[2025-02-11] MEDS: ACETAMINOPHEN 325 MG TAB PO PRN (13:04)
[2025-02-11] MEDS: MIDAZOLAM HCL 2MG/2ML 2ml VIAL (1mg/ml) IV ONE (14:28)
--- NOTE | 2025-02-11 15:26 | DVHOP ---
DATE OF SURGERY: 02/11/2025 The patient with positive blood culture for Staph hominis. The patient now to undergo EROS to rule out endocarditis. DESCRIPTION OF PROCEDURE: The patient was given adequate conscious sedation. An Omniplane transesophageal probe was used to intubate the esophagus. Standard transesophageal echo images were obtained. There were no complications. The patient tolerated the procedure well. RESULTS: * Left ventricular function was preserved with estimated EF of greater than 65%. * There is no transesophageal echocardiographic evidence of any valvular vegetation in A) aortic valve, B) in the tricuspid valve, C) Mitral valve, or pulmonic valve. * There is no intra-atrial septal aneurysm. * No ventricular septal defect as well. Therefore, the patient with no evidence for valvular vegetation in all 4 valves. No evidence for any left to right or right to left shunt demonstrated by transesophageal echocardiography. Jens Zhong MD SA/DONOVAN/JOVI TID: [id number] RECEIPT: [id number]
--- NOTE | 2025-02-11 15:51 | DVHPN2 ---
Progress Note Date Seen: Feb 11, 2025 Resident Creating Document: LIDA CEJA RESIDENT Has the PT tested + for MRSA If YES, has PT been informed?: No Medical Necessity Reason Pt with a Central, PICC or Fol: No Subjective Review of Systems Patient seen and examined at the bedside. Patient is currently reported no new complaints and improved since admission.Rest f ROS is negative Objective vital signs Vital Sign Date Time Temp Pulse Resp B/P (MAP) Pulse Ox O2 Delivery O2 Flow Rate FiO2 02/11/25 15:34 132/83 02/11/25 09:00 97.7 89 16 94 97.7 02/10/25 20:00 Room Air* 0 21 Total Intake and Output 02/10/25 02/10/25 02/11/25 15:00 23:00 07:00 Intake Total 300 ml 346 ml 260 ml Balance 300 ml 346 ml 260 ml medications Current Medications Medications Dose Ordered Sig/Wilfredo Route Start Time Stop Time Status Last Admin Dose Admin Acetaminophen 650 mg Q6HP PRN PO 02/08/25 00:15 02/11/25 13:04 650 MG Enoxaparin Sodium 40 mg DAILY SC 02/08/25 00:15 02/11/25 10:26 40 MG Insulin Glargine 30 units DAILY@1000 SC 02/08/25 10:00 02/10/25 10:42 30 UNITS Diagnostic Test (Pha) 1 strip ACHS 02/08/25 07:00 02/11/25 11:42 1 STRIP Insulin Human Regular ACHS SC 02/08/25 07:00 02/10/25 21:41 3 UNITS Dextrose 50 ml UD PRN IV 02/08/25 00:15 Losartan Potassium 100 mg DAILY PO 02/08/25 10:00 02/11/25 10:24 100 MG Atorvastatin Calcium 40 mg HS PO 02/08/25 22:00 02/09/25 22:39 40 MG Aspirin 81 mg DAILY PO 02/08/25 10:00 02/11/25 10:25 81 MG Clopidogrel Bisulfate 75 mg DAILY PO 02/08/25 10:00 02/11/25 10:24 75 MG Ceftriaxone Sodium 50 ml @ 100 mls/hr DAILY@09 IV 02/09/25 09:00 02/11/25 10:26 100 MLS/HR Vancomycin HCl 0 ml @ 0 mls/hr PER PHARMACY IV 02/09/25 07:45 Nifedipine 60 mg DAILY PO 02/10/25 10:00 02/11/25 10:24 60 MG Vancomycin HCl 250 ml @ 200 mls/hr DAILY IV 02/10/25 10:00 02/11/25 11:34 200 MLS/HR Hydralazine HCl 25 mg Q8HR PO 02/09/25 22:00 02/11/25 15:34 25 MG Clonidine HCl 0.2 mg Q6HP PRN PO 02/09/25 18:30 02/10/25 01:49 0.2 MG Hydralazine HCl 10 mg Q6HP PRN IV 02/09/25 18:30 02/10/25 21:55 10 MG Examination General Appearance: laying in bed, not in acute distress, looks pale. HEENT: Atraumatic, Mucous membranes moist/pink Respiratory: Clear to auscultation, Normal air movement, No added sounds Cardiovascular: Regular rate, Normal S1, Normal S2, No murmurs Abdominal: Active bowel sounds, soft, no distention, no tenderness. Extremities: Right-sided upper and lower extremity motor deficit with reduced tone, strength, sensation and ROM. Skin: No Significant rash. Neuro: speech is slow but coherent, responds to command. Sensorimotor deficits as above. Patient is bedbound. Psych/Mental Status: Alert, oriented in person and place, not in time laboratory and microbiology Laboratory Tests 02/11/25 05:45 Test 02/11/25 05:45 Range/Units Serum Glucose 110 H 74-106 mg/dL Microbiology Date/Time Source Procedure Growth Status 02/08/25 09:15 Voided Urine Urine Culture - Final Complete 02/08/25 01:00 Blood Blood Culture - Preliminary Staph hominis subsp homins Resulted Labs and/or images reviewed: Labs reviewed by me, Image(s) reviewed by me Problem List/Assessment/Plan Problem List/Assessment/Plan Assessment Gram-positive bacteremia with a coagulase-negative Staph Acute metabolic encephalopathy Uncontrolled type 2 DM Chronic diastolic CHF Plan/Recommendation We will continue with the following plan/recommendations (Dr. Colindres): Echocardiogram Conclusion- EF >55%, MILD AV SCLEROSIS, MID AI BNP, troponins are wnl operations chief blood pressure continuously DVT prophylaxis EROS tomorrow, NPO after midnight and please obtain consent. All risks and benefits explained Transthoracic echocardiogram today showed below findings: - Left ventricular function was preserved with estimated EF of greater than 65%. - There is no transesophageal echocardiographic evidence of any valvular vegetation in A) aortic valve, B) in the tricuspid valve, C) Mitral valve, or pulmonic valve. - There is no intra-atrial septal aneurysm. - No ventricular septal defect as well. Therefore, the patient with no evidence for valvular vegetation in all 4 valves. No evidence for any left to right or right to left shunt demonstrated by transesophageal echocardiography. Rest of management as per primary team Discussed with Dr. Colindres. Plan discussed with: Patient Date of Service: Feb 11, 2025 Billing Provider: BARBIE GOODMAN MD Common Visit Codes: [id number] CARE 30-74 MIN LIDA CEJA RESIDENT Feb 11, 2025 15:51
[2025-02-11 16:46] VITALS: BP 152/78; PULSE 89; RESP 19; TEMP 97.7; O2SAT 95
--- NOTE | 2025-02-11 17:27 | DVHPNRES ---
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 The patient came to the [facility] via EMS with chief complaint of 1 day of altered metal status that start progressively after taking 4 blood pressure medication at once (hydralazine 25, losartan 100 mg, amlodipine 10 mg and clonidine). After a while patient started to look sal garay, became pale, was clammy and diaphoretic as well as hyper somnolent and more confused than her baseline, which prompted her visit to the ED. The patient is a poor historian, the information was provided by her daughter who was at bedside. The patient's daughter denies any other complaints such as chest pain, abdominal pain, urinary symptoms, change in bowel habits, shortness of breath in the recent past. Vitals on admission BP 117/56 mmHg, HR 71, RR 14, pulse oximetry 95% in room air. CBC and BMP are normal, tropes are negative. The patient was admitted for further workup and management. PMH: As above PSH: None Family history: Reviewed, noncontributory the management of this case Social history: Does not drink alcohol, smoke or take any illicit drugs Allergies: None Code status: Full code Hospital course: On 02/08/25, the patient was examined and evaluated at bedside, VS, labs and chart was reviewed. BP has improved to 135/82mmhg, trending up. CT head is negative for intracranial hemorrhage. The patient is alert, her confusion has improved but she is not yet back to her baseline. The patient denies new complaints. I have address and answer patient and patient's daughter concern and questions. We will continue assessing this patient and evaluating her progress. On02/09/25, Patient was seen and examined at bedside. Vitals, labs and chart were reviewed. The patient mentioned she feels better today. High blood pressure reading was reported, nifedipine 60 mg p.o. daily was added to the regimen and amlodipine was discontinued. Blood culture showed growth of Gram- positive cocci in clusters. Repeat blood culture was ordered and patient was started on IV vancomycin per pharmacy. Echo was done, pending report. Cardiology consult for possible EROS was placed, pending evaluation. On 02/10/25, the patient was examined and evaluated at bedside, VS, labs and chart was reviewed. BP has improved to 122/70 mmHg. Preliminary blood cultures report: Coagulase negative staphylococcus. The patient continues on Ceftriaxone and Vancomycin IV. We will wait for the complete report and sensitivity. Cardiology is onboard; The ECHO performed report was inconclusive, therefore a new EROS was ordered, this will be performed tomorrow 02/11/[address] Colindres. The patient will be NPO starting at midnight. Today, the patient reports doing better, she denies new complaints. I have spoken with the patient and patient's daughter and I have addressed all their concerns and questions satisfactory. We will continue assessing this patient and evaluating her progress. On 02/11/25, the patient was examined and evaluated at bedside, VS, labs and chart was reviewed. BP has been stable. Preliminary blood cultures report: Coagulase negative staphylococcus: Staph. hominis was reported sensitive to vancomycin. New blood cultures were ordered. Cardiology is onboard. EROS was ordered, the procedure was performed by Dr. Duarte, the report showed: no evidence for valvular vegetation in all 4 valves. No evidence for any left to right or right to left shunt demonstrated by transesophageal echocardiography. The patient reports doing well today, no new complaints. I have spoken with the patient and patient's daughter and I have addressed all their concerns and questions satisfactory. We will continue assessing this patient and evaluating her progress. ROS Constitutional: No: Fever, Chills, Sweats, Weakness, Malaise Eyes: No: Pain, Vision change, Conjunctivae inflammation, Eyelid inflammation, Other, Redness ENT: No: Ear pain, Ear discharge, Nose pain, Nose discharge, Nose congestion, Mouth pain, Mouth swelling, Throat pain, Throat swelling, Other Respiratory: No: Cough, Dry, Shortness of breath, SOB with excertion, Wheezing, Hemoptysis, Pleuritic Pain, Sputum, Wheezing, Other Cardiovascular: No: Chest Pain, Palpitations, Orthopnea, Paroxysmal Noc. Dyspnea, Edema, Lt Headedness, Other Genitourinary: No Dysuria, No Frequency, No Incontinence, No Hematuria, No Retention, No Other Musculoskeletal: No: other, neck pain, shoulder pain, arm pain, back pain, hand pain, leg pain, foot pain Skin: No: Rash, Lesions, Jaundice, Bruising, Other Neurological: No new Weakness, Numbness, Incoordination, Change in speech, Seizures Allergies: No Known Drug Allergy (Verified Allergy, Unknown, 07/26/24) Objective vital signs Vital Sign Date Time Temp Pulse Resp B/P (MAP) Pulse Ox O2 Delivery O2 Flow Rate FiO2 02/11/25 15:34 132/83 02/11/25 09:00 97.7 89 16 94 97.7 02/10/25 20:00 Room Air* 0 21 Total Intake and Output 02/10/25 02/10/25 02/11/25 15:00 23:00 07:00 Intake Total 300 ml 346 ml 260 ml Balance 300 ml 346 ml 260 ml medications Current Medications Medications Dose Ordered Sig/Wilfredo Route Start Time Stop Time Status Last Admin Dose Admin Acetaminophen 650 mg Q6HP PRN PO 02/08/25 00:15 02/11/25 13:04 650 MG Enoxaparin Sodium 40 mg DAILY SC 02/08/25 00:15 02/11/25 10:26 40 MG Insulin Glargine 30 units DAILY@1000 SC 02/08/25 10:00 02/10/25 10:42 30 UNITS Diagnostic Test (Pha) 1 strip ACHS 02/08/25 07:00 02/11/25 11:42 1 STRIP Insulin Human Regular ACHS SC 02/08/25 07:00 02/10/25 21:41 3 UNITS Dextrose 50 ml UD PRN IV 02/08/25 00:15 Losartan Potassium 100 mg DAILY PO 02/08/25 10:00 02/11/25 10:24 100 MG Atorvastatin Calcium 40 mg HS PO 02/08/25 22:00 02/09/25 22:39 40 MG Aspirin 81 mg DAILY PO 02/08/25 10:00 02/11/25 10:25 81 MG Clopidogrel Bisulfate 75 mg DAILY PO 02/08/25 10:00 02/11/25 10:24 75 MG Ceftriaxone Sodium 50 ml @ 100 mls/hr DAILY@09 IV 02/09/25 09:00 02/11/25 10:26 100 MLS/HR Vancomycin HCl 0 ml @ 0 mls/hr PER PHARMACY IV 02/09/25 07:45 Nifedipine 60 mg DAILY PO 02/10/25 10:00 02/11/25 10:24 60 MG Vancomycin HCl 250 ml @ 200 mls/hr DAILY IV 02/10/25 10:00 02/11/25 11:34 200 MLS/HR Hydralazine HCl 25 mg Q8HR PO 02/09/25 22:00 02/11/25 15:34 25 MG Clonidine HCl 0.2 mg Q6HP PRN PO 02/09/25 18:30 02/10/25 01:49 0.2 MG Hydralazine HCl 10 mg Q6HP PRN IV 02/09/25 18:30 02/10/25 21:55 10 MG Examination General Appearance: laying in bed, not in acute distress, looks pale. HEENT: Atraumatic, Mucous membranes moist/pink Respiratory: Clear to auscultation, Normal air movement, No added sounds Cardiovascular: Regular rate, Normal S1, Normal S2, No murmurs Abdominal: Active bowel sounds, soft, no distention, no tenderness. Extremities: Right-sided upper and lower extremity motor deficit with reduced tone, strength, sensation and ROM. Stable from baseline. Skin: No Significant rash. Neuro: speech is slow but coherent, responds to command. Sensorimotor deficits as above. No changes from baseline. Patient is bedbound. Psych/Mental Status: Alert, oriented in person and place, and time. laboratory and microbiology Laboratory Tests 02/11/25 05:45 Test 02/11/25 05:45 Range/Units Serum Glucose 110 H 74-106 mg/dL Microbiology Date/Time Source Procedure Growth Status 02/08/25 09:15 Voided Urine Urine Culture - Final Complete 02/08/25 01:00 Blood Blood Culture - Preliminary Staph hominis subsp homins Resulted Problem List/Assessment/Plan Problem List/Assessment/Plan #Acute metabolic encephalopathy possible due to Bacteremia #Acute bacteremia: blood culture coagulase negative staphylococcus - CT head shows: No acute intracranial abnormality. - chest x-ray: normal - TSH 1.43 - serum alcohol < 3 - lactic acid 1.4 - magnesium 1.8 - ammonia <10 - UDS: negative - COVID, influenza: negative - IV NS 0.9% 1 L bolus once and 100 cc/ hour once - blood culture: blood culture coagulase negative staphylococcus: Staph Hominis. - urine culture: Negative in 72hrs -Ceftriaxone 1g IV daily -Vancomycin IV per pharmacy. - ECHO: EF>55, limited. -Cardiology consult: EROS: no evidence for valvular vegetation in all 4 valves. No evidence for any left to right or right to left shunt demonstrated by transesophageal echocardiography. #Chronic Type 2 diabetes mellitus, uncontrolled. 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 -Losartan 100mg po daily -Amlodipine 10mg po daily -Clonidine 0.2mg po 6hrs prn BP>150/90mmHg -Nifedipine 60mg po daily #Chronic Hyperlipidemia - atorvastatin 40 mg p.o. 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 NPO at midnight for procedure EROS. DVT prophylaxis Goals of care discussed with the patient > 35 min. Discussed plan of care with Dr. Lawrence Code status: Full code PCP: Dr. Ram. Plan discussed with: Patient's daughter, the patient agrees with the plan. Plan discussed with: Patient, Daughter Date of Service: Feb 11, 2025 Billing Provider: ROXI LAWRENCE MD Common Visit Codes: [id number] INP/OBS CARE(HIGH) NAHUN,LENA RESIDENT Feb 11, 2025 17:27
[2025-02-11 21:00] VITALS: BP 147/90; PULSE 102; RESP 18; TEMP 97.9; O2SAT 94
[2025-02-12 05:00] VITALS: BP 152/81; PULSE 89; RESP 18; TEMP 97.7; O2SAT 95
[2025-02-12 08:00] VITALS: PULSE 86; RESP 16
[2025-02-12 08:45] VITALS: BP 143/77; PULSE 86; RESP 16; TEMP 97.6; O2SAT 97
[2025-02-12 12:46] VITALS: BP 128/73; PULSE 81; RESP 18; TEMP 97.2; O2SAT 98
[2025-02-12] MEDS ORDERED: LEVO500T91 PO (14:16)
[2025-02-12] MEDS ORDERED: NIFE1TAB30 PO (14:16)
--- NOTE | 2025-02-12 15:32 | DVHPN2 ---
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 WEAKNESS HTN DIABETES VASCULOPATHY NEUROPATHY NEPHROPATHY vital signs Vital Sign Date Time Temp Pulse Resp B/P (MAP) Pulse Ox O2 Delivery O2 Flow Rate FiO2 02/12/25 15:15 128/73 02/12/25 12:46 97.2 81 18 98 97.2 02/12/25 08:00 Room Air* 0 21 Total Intake and Output 02/11/25 02/11/25 02/12/25 15:00 23:00 07:00 Intake Total 300 ml 0 ml 200 ml Balance 300 ml 0 ml 200 ml medications Current Medications Medications Dose Ordered Sig/Wilfredo Route Start Time Stop Time Status Last Admin Dose Admin Acetaminophen 650 mg Q6HP PRN PO 02/08/25 00:15 02/11/25 13:04 650 MG Enoxaparin Sodium 40 mg DAILY SC 02/08/25 00:15 02/12/25 09:19 40 MG Insulin Glargine 30 units DAILY@1000 SC 02/08/25 10:00 02/12/25 09:30 30 UNITS Diagnostic Test (Pha) 1 strip ACHS 02/08/25 07:00 02/12/25 11:30 1 STRIP Insulin Human Regular ACHS SC 02/08/25 07:00 02/12/25 06:31 2 UNITS Dextrose 50 ml UD PRN IV 02/08/25 00:15 Losartan Potassium 100 mg DAILY PO 02/08/25 10:00 02/12/25 09:19 100 MG Atorvastatin Calcium 40 mg HS PO 02/08/25 22:00 02/09/25 22:39 40 MG Aspirin 81 mg DAILY PO 02/08/25 10:00 02/12/25 09:16 81 MG Clopidogrel Bisulfate 75 mg DAILY PO 02/08/25 10:00 02/12/25 09:18 75 MG Ceftriaxone Sodium 50 ml @ 100 mls/hr DAILY@09 IV 02/09/25 09:00 02/12/25 09:02 100 MLS/HR Vancomycin HCl 0 ml @ 0 mls/hr PER PHARMACY IV 02/09/25 07:45 Nifedipine 60 mg DAILY PO 02/10/25 10:00 02/12/25 09:17 60 MG Vancomycin HCl 250 ml @ 200 mls/hr DAILY IV 02/10/25 10:00 02/12/25 12:12 200 MLS/HR Hydralazine HCl 25 mg Q8HR PO 02/09/25 22:00 02/12/25 15:15 25 MG Clonidine HCl 0.2 mg Q6HP PRN PO 02/09/25 18:30 02/10/25 01:49 0.2 MG Hydralazine HCl 10 mg Q6HP PRN IV 02/09/25 18:30 02/10/25 21:55 10 MG laboratory and microbiology Laboratory Tests 02/12/25 09:49 02/11/25 05:45 Test 02/11/25 05:45 Range/Units Serum Glucose 110 H 74-106 mg/dL Problem List SEPSIS POSITIVE BLD CX AMS DEMENTIA( MULTI INFARCT CVA LEFT SIDED WITH RIGHT SIDE WEAKNESS HTN DIABETES VASCULOPATHY NEUROPATHY NEPHROPATHY UTI LACTOBACILLUS Assessment/Plan SINCE BACTEREMIC COAGULASE NEGATIVE STAPH STAPH HOMINIS SCHEDULE FOR EROS TTE EF >55% MILD AV SCLEROSIS TRACE AI LAE MILD TR MILD MR NO TTE EVIDENCE FOR VALVULAR VEGETATION Plan discussed with: Patient BARBIE GOODMAN MD Feb 12, 2025 15:31
[2025-02-12 16:30] VITALS: BP 141/86; PULSE 93; RESP 16; TEMP 97.7; O2SAT 97
--- NOTE | 2025-02-12 16:32 | MEDREC ---
[facility] ASP Intervention Section I [facility] ASP Intervention: Review courses of therapy (Dr. Susan Riddle agreed switching vancomycin to ciprofloxacin PO (based on culture results) and discharge patient) PETRA [facility] RESIDENT Feb 12, 2025 16:32
--- NOTE | 2025-02-12 21:04 | DVHDSRES ---
Discharge Summary Date of Admission Resident Creating Document: LENA GARNICA RESIDENT Feb 08, 2025 at 00:09 Date of Discharge: Feb 12, 2025 Admitting Diagnosis #Acute metabolic encephalopathy possible due to Bacteremia #Acute bacteremia: blood culture coagulase negative staphylococcus #Chronic Type 2 diabetes mellitus, uncontrolled. 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 Wounds: No wounds present on admission or after admission Labs/Diagnostic Data: Laboratory Results Test 02/12/25 12:19 02/12/25 09:49 02/11/25 05:45 02/08/25 09:15 POC Glucose 121 mg/dl (70-106) Creatinine 0.57 mg/dL (0.550-1.02) Glomerular Filtration Rate Calc 96 mL/min (>90) Vancomycin Level Trough 8.1 ug/mL (5-10) White Blood Count 8.8 10^3/uL (4.4-10.8) Red Blood Count 4.60 10^6/uL (4.0-5.20) Hemoglobin 12.8 g/dL (12.2-16.2) Hematocrit 38.5 % (36.0-46.0) Mean Corpuscular Volume 83.5 fL (80.0-100.0) Mean Corpuscular Hemoglobin 27.8 pg (28.0-32.0) Mean Corpuscular Hemoglobin Concent 33.2 g/dL (32.0-36.0) Red Cell Distribution Width 15.1 % (11.8-14.3) Platelet Count 340 10^3/uL (140-450) Mean Platelet Volume 8.1 fL (6.9-10.8) Neutrophils (%) (Auto) 61.0 % (37.0-80.0) Lymphocytes (%) (Auto) 30.7 % (10.0-50.0) Monocytes (%) (Auto) 6.4 % (0.0-12.0) Eosinophils (%) (Auto) 1.5 % (0.0-7.0) Basophils (%) (Auto) 0.4 % (0.0-2.0) Neutrophils # (Auto) 5.4 10 ^3/uL (1.6-8.6) Lymphocytes # (Auto) 2.7 10 ^3/uL (0.4-5.4) Monocytes # (Auto) 0.6 10 ^3/uL (0-1.3) Eosinophils # (Auto) 0.1 10 ^3/uL (0-0.8) Basophils # (Auto) 0 10 ^3/uL (0-0.2) Nucleated Red Blood Cells 0.0 % Sodium Level 138 mmol/L (136-145) Potassium Level 3.8 mmol/L (3.5-5.1) Chloride Level 103 mmol/L (98-107) Carbon Dioxide Level 24 mmol/L (20-31) Anion Gap 11 (5-15) Blood Urea Nitrogen 7 mg/dL (9-23) BUN/Creatinine Ratio 13.0 (10.0-20.0) Serum Glucose 110 mg/dL (74-106) Calcium Level 10.7 mg/dL (8.7-10.4) Urine Color Yellow (Yellow) Urine Clarity Turbid (Clear) Urine pH 5.0 (5.0-9.0) Urine Specific [place] 1.031 (1.001-1.035) Urine Protein 1+ (Negative) Urine Ketones Negative (Negative) Urine Blood Negative /uL (Negative) Urine Nitrite Negative (Negative) Urine Bilirubin Negative (Negative) Urine Urobilinogen Normal mg/dL (Negative) Urine Leukocyte Esterase Negative /uL (Negative) Urine RBC 2 /hpf (0 - 4) Urine Microscopic WBC 1 /HPF (0-5) Urine Squamous Epithelial Cells Few /hpf (<5) Urine Bacteria Few /hpf (None Seen) Urine Hyaline Casts Few /lpf (0 - 2) Urine Mucus Few (None Seen) Urine Glucose 2+ mg/dL (Normal) Urine Opiates Screen Neg (NEGATIVE) Urine Fentanyl Screen Neg (NEGATIVE) Urine Barbiturates Screen Neg (NEGATIVE) Urine Phencyclidine Screen Neg (NEGATIVE) Urine Amphetamines Screen Neg (NEGATIVE) Urine Benzodiazepines Screen Neg (NEGATIVE) Urine Cocaine Screen Neg (NEGATIVE) Urine Cannabinoids Screen Neg (NEGATIVE) Test 02/08/25 02:10 02/08/25 01:20 02/08/25 00:50 02/07/25 21:00 Hemoglobin A1c 8.4 % A1C (<5.7) Total Bilirubin 0.3 mg/dL (0.2-1.0) Aspartate Amino Transferase (AST) 13 U/L (13-40) Alanine Aminotransferase (ALT) 12 U/L (7-40) Alkaline Phosphatase 69 U/L (46-116) Ammonia < 10 umol/L (11-32) Total Protein 6.7 g/dL (5.7-8.2) Albumin 3.7 g/dL (3.2-4.8) Influenza Type A Antigen Negative (Negative) Influenza Type B Antigen Negative (Negative) SARS-CoV-2 Antigen (Rapid) Negative (NEGATIVE) Lactic Acid Level 1.4 mmol/L (0.4-2.0) Magnesium Level 1.8 mg/dL (1.6-2.6) Direct Bilirubin < 0.1 mg/dL (<0.3) Troponin I High Sensitivity 4 ng/L (</=34) Thyroid Stimulating Hormone (TSH) 1.43 uIU/mL (0.55-4.78) Plasma/Serum Blood Alcohol < 3.0 mg/dL (<10) Other Laboratory Tests 02/12/25 09:49 02/11/25 05:45 Brief Hx & Hospital Course: Mrs. 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 The patient came to the [facility] via EMS with chief complaint of 1 day of altered metal status that start progressively after taking 4 blood pressure medication at once (hydralazine 25, losartan 100 mg, amlodipine 10 mg and clonidine). After a while patient started to look sal garay, became pale, was clammy and diaphoretic as well as hyper somnolent and more confused than her baseline, which prompted her visit to the ED. The patient is a poor historian, the information was provided by her daughter who was at bedside. The patient's daughter denies any other complaints such as chest pain, abdominal pain, urinary symptoms, change in bowel habits, shortness of breath in the recent past. Vitals on admission BP 117/56 mmHg, HR 71, RR 14, pulse oximetry 95% in room air. CBC and BMP are normal, tropes are negative. The patient was admitted for further workup and management. PMH: As above PSH: None Family history: Reviewed, noncontributory the management of this case Social history: Does not drink alcohol, smoke or take any illicit drugs Allergies: None Code status: Full code Hospital course: On 02/08/25, the patient was examined and evaluated at bedside, VS, labs and chart was reviewed. BP has improved to 135/82mmhg, trending up. CT head is negative for intracranial hemorrhage. The patient is alert, her confusion has improved but she is not yet back to her baseline. The patient denies new complaints. I have address and answer patient and patient's daughter concern and questions. We will continue assessing this patient and evaluating her progress. On02/09/25, Patient was seen and examined at bedside. Vitals, labs and chart were reviewed. The patient mentioned she feels better today. High blood pressure reading was reported, nifedipine 60 mg p.o. daily was added to the regimen and amlodipine was discontinued. Blood culture showed growth of Gram- positive cocci in clusters. Repeat blood culture was ordered and patient was started on IV vancomycin per pharmacy. Echo was done, pending report. Cardiology consult for possible EROS was placed, pending evaluation. On 02/10/25, the patient was examined and evaluated at bedside, VS, labs and chart was reviewed. BP has improved to 122/70 mmHg. Preliminary blood cultures report: Coagulase negative staphylococcus. The patient continues on Ceftriaxone and Vancomycin IV. We will wait for the complete report and sensitivity. Cardiology is onboard; The ECHO performed report was inconclusive, therefore a new EROS was ordered, this will be performed tomorrow 02/11/[address] Colindres. The patient will be NPO starting at midnight. Today, the patient reports doing better, she denies new complaints. I have spoken with the patient and patient's daughter and I have addressed all their concerns and questions satisfactory. We will continue assessing this patient and evaluating her progress. On 02/11/25, the patient was examined and evaluated at bedside, VS, labs and chart was reviewed. BP has been stable. Preliminary blood cultures report: Coagulase negative staphylococcus: Staph. hominis was reported sensitive to vancomycin. New blood cultures were ordered. Cardiology is onboard. EROS was ordered, the procedure was performed by Dr. Duarte, the report showed: no evidence for valvular vegetation in all 4 valves. No evidence for any left to right or right to left shunt demonstrated by transesophageal echocardiography. The patient reports doing well today, no new complaints. I have spoken with the patient and patient's daughter and I have addressed all their concerns and questions satisfactory. We will continue assessing this patient and evaluating her progress. On 02/12/25, the patient was examined and evaluated. Vital signs laboratories and chart was reviewed. Today, patient reports feeling well. No new complaints. The patient is back to her baseline. Due to clinical improvement patient will be discharged home today with oral antibiotics. The patient will follow up with PCP in 1 week. Plan discussed with patient and daughter they agree to understanding and agreed to the discharge plan. ROS Constitutional: No: Fever, Chills, Sweats, Weakness, Malaise Eyes: No: Pain, Vision change, Conjunctivae inflammation, Eyelid inflammation, Other, Redness ENT: No: Ear pain, Ear discharge, Nose pain, Nose discharge, Nose congestion, Mouth pain, Mouth swelling, Throat pain, Throat swelling, Other Respiratory: No: Cough, Dry, Shortness of breath, SOB with excertion, Wheezing, Hemoptysis, Pleuritic Pain, Sputum, Wheezing, Other Cardiovascular: No: Chest Pain, Palpitations, Orthopnea, Paroxysmal Noc. Dyspnea, Edema, Lt Headedness, Other Genitourinary: No Dysuria, No Frequency, No Incontinence, No Hematuria, No Retention, No Other Musculoskeletal: No: other, neck pain, shoulder pain, arm pain, back pain, hand pain, leg pain, foot pain Skin: No: Rash, Lesions, Jaundice, Bruising, Other Neurological: No new Weakness, Numbness, Incoordination, Change in speech, Seizures Allergies: No Known Drug Allergy (Verified Allergy, Unknown, 07/26/24) Physical exam General Appearance: laying in bed, not in acute distress. HEENT: Atraumatic, Mucous membranes moist/pink Respiratory: Clear to auscultation, Normal air movement, No added sounds Cardiovascular: Regular rate, Normal S1, Normal S2, No murmurs Abdominal: Active bowel sounds, soft, no distention, no tenderness. Extremities: Right-sided upper and lower extremity motor deficit with reduced tone, strength, sensation and ROM. Stable from baseline. Skin: No Significant rash. Neuro: speech is slow but coherent, responds to command, baseline. Sensorimotor deficits as above. No changes from baseline. Patient is bedbound. Psych/Mental Status: Alert, oriented in person and place, and time. Operations or Procedures PROCEDURE(s): CXR1 - CHEST XRAY 1 VIEW REASON: AMS, eval for PNA ORDER NUMBER(s): [id number], ACCESSION NUMBER(s): [id number] EXAM: XY CHEST XRAY 1 VIEW HISTORY: AMS, eval for PNA TECHNIQUE: 1 view of the chest COMPARISON: XY CHEST PORTABLE on DOS: 07/26/24 FINDINGS/IMPRESSION: LUNGS: No pleural effusion, consolidation, or pneumothorax. MEDIASTINUM: Unremarkable. BONES: No acute osseous abnormality. OTHER: None. EDURE(s): HWOCT - HEAD WITHOUT CONTRAST REASON: AMS, h/o prior CVA ORDER NUMBER(s): [id number], ACCESSION NUMBER(s): [id number] EXAM: CT HEAD WITHOUT CONTRAST INDICATION: AMS, h/o prior CVA TECHNIQUE: CT of the head without intravenous contrast. Radiation Dose Information: CT Dose: CTDI volume is 53.64 mGy. Dose-length product is 1076.15 mGy*cm The dose indicators for CT are the volume Computed Tomography (CT) Dose Index (CTDIvol) and the Dose Length Product (DLP), and are measured in units of mGy and mGy-cm, respectively. These indicators are not patient dose, but values generated from the CT scanner acquisition factors. The report includes radiation exposure data for exposures received during this examination. COMPARISON: CT HEAD WITHOUT CONTRAST on DOS: 07/26/24 FINDINGS: There is no evidence of acute intracranial hemorrhage, extra-axial collection, mass effect, midline shift, herniation or hydrocephalus. The ventricles, sulci and cisterns are age appropriate. Remote infarct near the junction of the left posterior temporal, parietal, and occipital lobes. Patchy periventricular and subcortical white matter hypoattenuation is nonspecific but may be related to small vessel ischemic disease. The visualized paranasal sinuses and mastoid air cells are clear. The surrounding soft tissues and osseous structures are unremarkable. IMPRESSION: No acute intracranial abnormality. Condition at Discharge: Stable Final Diagnosis/Problems List #Acute metabolic encephalopathy possible due to Bacteremia #Acute bacteremia: blood culture coagulase negative staphylococcus #Chronic Type 2 diabetes mellitus, uncontrolled. 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 Continue with home medication as below Scheduled Aspirin (Aspirin Adult Low Dose), 1 TAB PO DAILY, (Reported) Atorvastatin Calcium (Atorvastatin Calcium), 40 MG PO DAILY, (Reported) Clopidogrel Bisulfate (Clopidogrel), 1 TAB PO DAILY, (Reported) Hydralazine HCl (Hydralazine HCl), 1 TAB PO BID, (Reported) Insulin Glargine (Toujeo Solostar), 50 UNIT SC DAILY, (Reported) Insulin Lispro (Insulin Lispro Kwikpen), 15 UNIT SC BID, (Reported) Levofloxacin Hemihydrate (Levaquin 500 Mg), 1 TAB PO DAILY Losartan Potassium (Losartan Potassium), 1 TAB PO DAILY, (Reported) Memantine Hydrochloride (Memantine HCl), 1 TAB PO DAILY, (Reported) Nifedipine (Nifedipine Er), 1 TAB PO DAILY Quetiapine Fumerate (Quetiapine Fumarate), 1 TAB PO DAILY, (Reported) Miscellaneous Medications Trazodone Hcl (Trazodone Hcl), 1 TAB PO, (Reported) Discontinued Medications Amlodipine Besylate (Amlodipine Besylate), 1 TAB PO DAILY, (Reported) Clonidine Hydrochloride (Clonidine Hcl), 1 TAB PO BIDPRN PRN for blood pressure, (Reported) Tramadol Hcl (Tramadol Hcl), 1 TAB PO DAILY, (Reported) Discharge Statement: "Patient was advised to return to the ER or call 911 if any headaches, dizziness, shortness of breath, chest pain, abdominal pain, bleeding, fevers, or worsening of medical condition. Patient was counseled about treatment plan, medications, possible side effects, patientverbalized understanding. All questions were answered to the best of my ability. This discharge took greater then 30 minutes in planning, reviewing documentation, counseling the patient, and discussing with other team members." Discharge Care Plan Instructions Take Rx medications, Notify MD of any issues, Keep list of meds w/ you, Do not drink ETOH/smoke, Call 911 in an emergency, F/U w/ PCP ASSESSMENT ASSESSMENT Assessment #Acute metabolic encephalopathy possible due to Bacteremia #Acute bacteremia: blood culture coagulase negative staphylococcus #Chronic Type 2 diabetes mellitus, uncontrolled. 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
== END 2025-02-12 17:25 | disposition home or self-care (01) | DRG 70 ==
LOC: ER 19:33 → EDBD 19:33 → OVERFLOW 02-08 00:09 → TELE-CENTR 02-08 15:20 → CENTRAL 02-11 07:29
PROVIDERS: ADMIT Internal Medicine; ATTEND Internal Medicine
PROC: B24BZZ4 Ultrasonography of Heart with Aorta, Transesophageal (ICD-10-PCS; principal; 2025-02-11)
DX: G93.41 Metabolic encephalopathy (principal); R53.2 Functional quadriplegia; R78.81 Bacteremia; I50.42 Chronic combined systolic (congestive) and diastolic (congestive) heart failure; I69.351 Hemiplegia and hemiparesis following cerebral infarction affecting right dominant side; I69.318 Other symptoms and signs involving cognitive functions following cerebral infarction; I11.0 Hypertensive heart disease with heart failure; B96.89 Other specified bacterial agents as the cause of diseases classified elsewhere; E11.40 Type 2 diabetes mellitus with diabetic neuropathy, unspecified; E11.65 Type 2 diabetes mellitus with hyperglycemia; E78.5 Hyperlipidemia, unspecified; N39.0 Urinary tract infection, site not specified; Z79.02 Long term (current) use of antithrombotics/antiplatelets; F01.50 Vascular dementia, unspecified severity, without behavioral disturbance, psychotic disturbance, mood disturbance, and anxiety; I08.1 Rheumatic disorders of both mitral and tricuspid valves; Z20.822 Contact with and (suspected) exposure to COVID-19; Z74.01 Bed confinement status; N28.9 Disorder of kidney and ureter, unspecified; Z79.82 Long term (current) use of aspirin; Z79.899 Other long term (current) drug therapy; Z79.84 Long term (current) use of oral hypoglycemic drugs
CPT/HCPCS: 36415; 70450; 71045; 80048; 80053; 80076; 80202; 80307; 80320; 81001; 82140; 82565; 82962; 83036; 83605; 83735; 84443; 84484; 85025; 87040; 87077; 87086; 87186; 87426; 87804; 93005; 93306; 93312; 96360; G0378; J1815; J2250